=== PATIENT | male | born 1950 | race Caucasian/White ===

== ENCOUNTER 2017-06-12 08:40 | Inpatient (IN) | payer OTHER, MEDICARE ==
[2017-06-12 09:39] LABS: Hematocrit 33 % (42-52); Mean Corpuscular HGB Conc 33 g/dl (31-36); Mean Corpuscular Hemoglobin 31 pg (27-31); Mean Corpuscular Volume 92 fL (80-94); Mean Platelet Volume 8 um3 (7.4-10.4); Red Blood Count 3.61 10^6/ul (4.0-5.4); Red Cell Distribution Width 14 % (10.5-15); White Blood Count 9.8 10^3/ul (3.5-10.8)
[2017-06-12 10:02] LABS: ALT 30 U/L (7-52); AST 27 U/L (13-39); Albumin 4.2 g/dL (3.2-5.2); Alkaline Phosphatase 64 U/L (34-104); Anion Gap 12 mmol/L (2-11); BUN/Creatinine Ratio 18.4 (8-20); Blood Urea Nitrogen 27 mg/dL (6-24); C Reactive Protein 4.99 mg/L (< 5.00); CO2 Carbon Dioxide 18 mmol/L (22-32); Calcium 9.8 mg/dL (8.6-10.3); Chloride 107 mmol/L (101-111); EGFR African American 61.5 (>60); EGFR Non-African American 47.8 (>60); Globulin 3.1 g/dL (2-4); Glucose 148 mg/dL (70-100); Potassium 4.3 mmol/L (3.5-5.0); Sodium 137 mmol/L (133-145); Total Protein 7.3 g/dL (6.4-8.9)
--- NOTE | 2017-06-12 10:30 | ED ---
GI/ HPI - HPI Summary HPI Summary: Pt here w/ urinary retention and pelvic pain progressing to flanks. H/o prostate CA w/ radical prostectomy followed by radiation - this resulted in bladder damage and therefore clot formation. He was also placed on lupron which he stopped 6 months ago and casodex with megace stopped 2 weeks ago. He takes trospium for bladder spasm BID and has been self-cathetering. is self- cathetering successfully until last night - difficulty getting urine - was drinking lots of fluids in an effort to pass urine w/o success. This morning at 6:00am, he was able to pass some urine through cath but notes he had lots of clots and clots - thinks a clot may be obstructing things as he hasn't been able to urinate since. Denies fever, chills, nausea, vomiting, diarrhea - in fact, he's been constipated but OTC laxatives have been helping. Follows w/ oncology/urology in [place] where he resides - he is here visiting a sick family member for the next 6-8 weeks. - History of Current Complaint Chief Complaint: EDUrogenitalProblems Time Seen by Provider: 06/12/17 08:57 Stated Complaint: BLOOD IN URINE/UNABLE TO URINATE Hx Obtained From: Patient, Family/Financial Reporting Consultant - Pain Intensity: 8 - Allergy/Home Medications Allergies/Adverse Reactions: Allergies Allergy/AdvReac Type Severity Reaction Status Date / Time Cephalexin Allergy Hives Verified 06/12/17 08:46 PMH/Surg Hx/FS Hx/Imm Hx Previously Healthy: Yes Endocrine/Hematology History: Denies: Hx Anticoagulant Therapy - ASA daily, Hx Blood Disorders Cardiovascular History: Reports: Hx Hypercholesterolemia - lipitor, zetia, fish oil, Hx Hypertension - metoprolol, verapamil, ramipril GI History: Reports: Hx Gastroesophageal Reflux Disease - omeprazole History: Reports: Other Problems/Disorders - prostate CA w/ rad prost, rad w/ 2ndry cystitis/clots, chemo, self caths Psychiatric History: Reports: Hx Depression - wellbutrin, citalopram - Cancer History Cancer Type, Location and Year: prostate CA w/ rad prost, rad w/ 2ndry cystitis/ clots, chemo, self caths; takes tropsium chloride for spasm BID Date and Location of Last Treatment: [place] Infectious Disease History: Denies: Traveled Outside the [place] in Last 30 Days - Social History Occupation: Retired Lives: With Family Review of Systems Constitutional: Negative Negative: Fever, Chills Cardiovascular: Negative Negative: Chest Pain Respiratory: Negative Negative: Shortness Of Breath Positive: Abdominal Pain - see HPI, Diarrhea - see HPI. Negative: Vomiting, Nausea Positive: see HPI Musculoskeletal: Negative Skin: Negative Neurological: Negative Positive: Anxious - from pain All Other Systems Reviewed And Are Negative: Yes Physical Exam Triage Information Reviewed: Yes Vital Signs On Initial Exam: Initial Vitals Temp Pulse Resp BP Pulse Ox 96.8 F 85 17 150/105 98 06/12/17 08:42 06/12/17 08:42 06/12/17 08:42 06/12/17 08:42 06/12/17 08:42 Vital Signs Reviewed: Yes Appearance: Positive: Well-Appearing, Well-Nourished, Pain Distress Skin: Positive: Warm, Dry Head/Face: Positive: Normal Head/Face Inspection Eyes: Positive: Normal, EOMI, Conjunctiva Clear - anicteric sclera ENT: Positive: Hearing grossly normal - w/ hearing aids in place Neck: Positive: Supple Respiratory/Lung Sounds: Positive: Breath Sounds Present Cardiovascular: Positive: Normal, RRR, S1, S2. Negative: Leg Edema Left, Leg Edema Right Abdomen Description: Positive: Guarding, Other: - TTP over suprapubic region. Negative: CVA Tenderness (R), CVA Tenderness (L) Bowel Sounds: Positive: Present Male Genital Exam: Positive: other - no scrotal swelling, lesions Musculoskeletal: Positive: Normal, Strength/ROM Intact Neurological: Positive: Normal, Sensory/Motor Intact, Alert, Oriented to Person Place, Time, CN Intact II-III Psychiatric: Positive: Anxious Diagnostics - Vital Signs Vital Signs Temp Pulse Resp BP Pulse Ox 06/12/17 08:42 96.8 F 85 17 150/105 98 - Laboratory Lab Results: Lab Results 06/12/17 06/12/17 06/12/17 Range/Units 09:09 09:09 09:20 WBC (3.5-10.8) 10^3/ul RBC (4.0-5.4) 10^6/ul Hgb (14.0-18.0) g/dl Hct (42-52) % MCV (80-94) fL MCH (27-31) pg MCHC (31-36) g/dl RDW (10.5-15) % Plt Count (150-450) 10^3/ul MPV (7.4-10.4) um3 Neut % (Auto) (38-83) % Lymph % (Auto) (25-47) % Warren % (Auto) (1-9) % Eos % (Auto) (0-6) % Baso % (Auto) (0-2) % Absolute Neuts (auto) (1.5-7.7) 10^3/ul Absolute Lymphs (auto) (1.0-4.8) 10^3/ul Absolute Monos (auto) (0-0.8) 10^3/ul Absolute Eos (auto) (0-0.6) 10^3/ul Absolute Basos (auto) (0-0.2) 10^3/ul Absolute Nucleated RBC 10^3/ul Nucleated RBC % INR (Anticoag Therapy) 0.88 L (0.89-1.11) APTT 23.5 L (26.0-36.3) seconds Sodium 137 (133-145) mmol/L Potassium 4.3 (3.5-5.0) mmol/L Chloride 107 (101-111) mmol/L Carbon Dioxide 18 L (22-32) mmol/L Anion Gap 12 H (2-11) mmol/L BUN 27 H (6-24) mg/dL Creatinine 1.47 H (0.67-1.17) mg/dL Est GFR ( Amer) 61.5 (>60) Est GFR (Non-Af Amer) 47.8 (>60) BUN/Creatinine Ratio 18.4 (8-20) Glucose 148 H (70-100) mg/dL Lactic Acid 2.8 H* (0.5-2.0) mmol/L Calcium 9.8 (8.6-10.3) mg/dL Total Bilirubin 1.10 H (0.2-1.0) mg/dL AST 27 (13-39) U/L ALT 30 (7-52) U/L Alkaline Phosphatase 64 (34-104) U/L C-Reactive Protein 4.99 (< 5.00) mg/L Total Protein 7.3 (6.4-8.9) g/dL Albumin 4.2 (3.2-5.2) g/dL Globulin 3.1 (2-4) g/dL Albumin/Globulin Ratio 1.4 (1-3) 06/12/17 Range/Units 09:20 WBC 9.8 (3.5-10.8) 10^3/ul RBC 3.61 L (4.0-5.4) 10^6/ul Hgb 11.0 L (14.0-18.0) g/dl Hct 33 L (42-52) % MCV 92 (80-94) fL MCH 31 (27-31) pg MCHC 33 (31-36) g/dl RDW 14 (10.5-15) % Plt Count 249 (150-450) 10^3/ul MPV 8 (7.4-10.4) um3 Neut % (Auto) 83.1 H (38-83) % Lymph % (Auto) 8.8 L (25-47) % Warren % (Auto) 6.9 (1-9) % Eos % (Auto) 0.5 (0-6) % Baso % (Auto) 0.7 (0-2) % Absolute Neuts (auto) 8.1 H (1.5-7.7) 10^3/ul Absolute Lymphs (auto) 0.9 L (1.0-4.8) 10^3/ul Absolute Monos (auto) 0.7 (0-0.8) 10^3/ul Absolute Eos (auto) 0.1 (0-0.6) 10^3/ul Absolute Basos (auto) 0.1 (0-0.2) 10^3/ul Absolute Nucleated RBC 0 10^3/ul Nucleated RBC % 0 INR (Anticoag Therapy) (0.89-1.11) APTT (26.0-36.3) seconds Sodium (133-145) mmol/L Potassium (3.5-5.0) mmol/L Chloride (101-111) mmol/L Carbon Dioxide (22-32) mmol/L Anion Gap (2-11) mmol/L BUN (6-24) mg/dL Creatinine (0.67-1.17) mg/dL Est GFR ( Amer) (>60) Est GFR (Non-Af Amer) (>60) BUN/Creatinine Ratio (8-20) Glucose (70-100) mg/dL Lactic Acid (0.5-2.0) mmol/L Calcium (8.6-10.3) mg/dL Total Bilirubin (0.2-1.0) mg/dL AST (13-39) U/L ALT (7-52) U/L Alkaline Phosphatase (34-104) U/L C-Reactive Protein (< 5.00) mg/L Total Protein (6.4-8.9) g/dL Albumin (3.2-5.2) g/dL Globulin (2-4) g/dL Albumin/Globulin Ratio (1-3) Result Diagrams: 06/12/17 09:20 06/12/17 09:09 Lab Statement: Any lab studies that have been ordered have been reviewed, and results considered in the medical decision making process. Re-Evaluation - Re-Evaluation First Eval Change: Improved - bladder scan revealed 70+ cc urine - pain improved s/p cath w / irrigation Second Eval Change: Worse - irrigation removed in anticipation for d/c w/ cath only - pain returned and cath occluded - repeat lavage with irrigation rehooked - improved sx and flowing only temporarily - blocked again and pain worse - valium ordered Third Eval Change: Unchanged - no change w/ valium yet - will provide morphine w/ zofran GIGU Course/Dx - Course Course Of Treatment: Pt presents s/p prostate CA w/ radical prostectomy, radiation and chemo. Cystitis 2ndry to radiation tx's - typically able to cath himself w/ success however starting last night, he was unable to do this - first attempt here was successful however in anticipation of d/c, irrigation removed and retention returned. Pt's lactic 2.8, RBC 3.61, HGB 11, HCT 33, INR 0.88, APTT 23.5, T. Bili 1.1, CO2 18, Anion gap 12, BUN 27, CREAT 1.47 GLUCOSE 148. Spoke w/ Dr. Gonzalez who initially after pt was successfully cath'ed and irrigated said okay to d/c w/ phillip, NS, keep cath in place and f/u this week. Unfortunately given following circumstances, pt to have PSA assessed, U/S kidneys w/ CT urogram and NPO - will provide valium for pain/spasm and heat pad to suprapubic region - Lisa requests admission via hospital service and he will assess later today as he cannot come in at the moment - will take to OR as needed. Spoke w/ Dr. Smith who will admit. Discussed course of care with pt and . - Diagnoses Provider Diagnoses: Urinary retention, Gross hematuria, History of prostate cancer - Physician Notifications Discussed Care Of Patient With: Ke Gonzalez Discharge - Discharge Plan Condition: Stable Disposition: ADMITTED TO [facility] Referrals: Non Staff,Doctor [Primary Care Provider] -
[2017-06-12] MEDS ORDERED: Diazepam SYRINGE* 5 MG/ML SYRINGE IV ONE (11:16)
[2017-06-12] MEDS ORDERED: NS 0.9% 1000 ML* 2,000 ML IV ONE (11:16)
[2017-06-12] MEDS: Levofloxacin 750 MG IVPREMIX(* 750 MG/150 ML BAG IVPB ONE ×2 (12:03→14:55)
[2017-06-12] MEDS ORDERED: Iodixanol* (CONTRAST) 320 MG/ML 100 ML SDV IV ONE (12:10)
[2017-06-12] MEDS ORDERED: Morphine INJ* 4 MG/ML 1 ML CARPUJECT IV ONE (12:17)
[2017-06-12] MEDS ORDERED: Ondansetron INJ* 2 MG/ML VIAL IV ONE (12:17)
--- NOTE | 2017-06-12 12:20 | RAD ---
INDICATION: Urinary transient gross hematuria, history of radical prostatectomy chemotherapy and radiation therapy for prostate cancer. COMPARISON: There are no prior studies available for comparison. TECHNIQUE: Multiple real-time images of the kidneys and urinary bladder were obtained. FINDINGS: The kidneys are normal in size shape and echogenicity. The right kidney measured 11.4 x 5.6 x 5.9 cm and the left kidney measured 13.9 x 7.1 x 5.4 cm. There is prominence of the calyces, renal pelvis and proximal ureters and both sides consistent with bilateral hydronephrosis. This is likely [id number] in degree. The bladder is not well defined. The bladder ramos are not distinctly seen. The bladder appears to be filled with material or a mass. The ureteral jets are not visualized. The patient is status post prostatectomy. The volume of the bladder was 271 mL. The patient has a catheter in place. IMPRESSION: 1. LIMITED STUDY. 2. BILATERAL HYDRONEPHROSIS. 3. INCREASED ECHOGENICITY THROUGHOUT THE URINARY BLADDER WHICH IS NOT WELL-DEFINED SUSPICIOUS FOR A BLADDER MASS OR CLOT'S. RECOMMEND A CT UROGRAM FOR FURTHER EVALUATION.
[2017-06-12] MEDS ORDERED: Morphine INJ* 4 MG/ML 1 ML CARPUJECT IV PRN (15:07)
[2017-06-12] MEDS: Acetaminophen TAB* 325 MG PO PRN (16:28)
[2017-06-12 17:00] LABS: Hematocrit 29 % (42-52); Hemoglobin 9.6 g/dl (14.0-18.0)
[2017-06-12 17:07] LABS: Comments Flag Yes
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
[2017-06-12] MEDS: LORazepam TAB(*) 1 MG PO SCH ×2 (17:42→22:23)
[2017-06-12] MEDS: Trospium (NF) 20 MG TAB PO SCH (20:11)
[2017-06-12 20:52] LABS: Hematocrit 28 % (42-52); Hemoglobin 9.2 g/dl (14.0-18.0)
[2017-06-12 20:53] LABS: Comments Flag Yes
[2017-06-12] MEDS ORDERED: Ibuprofen TAB* 600 MG PO ONE (21:26)
[2017-06-12] MEDS ORDERED: NS 0.9% 1000 ML* 1,000 ML IV ONE (21:26)
[2017-06-12] MEDS ORDERED: Ibuprofen TAB* 600 MG ONE (21:36)
[2017-06-13] MEDS: Acetaminophen TAB* 325 MG PO PRN (02:12)
[2017-06-13 02:40] LABS: Hematocrit 26 % (42-52); Hemoglobin 8.3 g/dl (14.0-18.0); Mean Corpuscular HGB Conc 32 g/dl (31-36); Mean Corpuscular Hemoglobin 31 pg (27-31); Mean Corpuscular Volume 96 fL (80-94); Mean Platelet Volume 8 um3 (7.4-10.4); Red Blood Count 2.67 10^6/ul (4.0-5.4); Red Cell Distribution Width 15 % (10.5-15); White Blood Count 16.4 10^3/ul (3.5-10.8)
[2017-06-13 02:41] LABS: Comments Flag Yes
[2017-06-13 02:42] LABS: Add Diff/Slide Review? Slide Review Added
[2017-06-13 02:54] LABS: BUN/Creatinine Ratio 13.9 (8-20); Calcium 8.4 mg/dL (8.6-10.3); EGFR Non-African American 25.7 (>60); Potassium 3.8 mmol/L (3.5-5.0)
[2017-06-13] MEDS: NS 0.9% 1000 ML* 2,000 ML IV ONE ×2 (03:04→04:09)
[2017-06-13] MEDS: LORazepam TAB(*) 1 MG PO SCH ×6 (04:09→22:12)
[2017-06-13] MEDS ORDERED: NS 0.9% 1000 ML* 1,000 ML IV ONE (07:40)
[2017-06-13] MEDS: Omeprazole CAP* 20 MG PO SCH (08:32)
[2017-06-13] MEDS: Atorvastatin* 80 MG TAB PO SCH (08:32)
[2017-06-13] MEDS: NS 0.9% w/ 20 Meq KCL 1000 ML* 1,000 ML IV SCH (08:32)
[2017-06-13] MEDS: Ezetimibe TAB* 10 MG PO SCH (08:33)
[2017-06-13] MEDS: buPROPion SR TAB.SR* 150 MG PO SCH (08:33)
[2017-06-13] MEDS ORDERED: Metoprolol Succinate XL TAB* 200 MG TAB.XL PO SCH (09:00)
[2017-06-13] MEDS ORDERED: Verapamil SR TAB* 240 MG PO SCH (09:00)
[2017-06-13] MEDS ORDERED: Ramipril CAP* 10 MG PO SCH ×2 (09:00)
[2017-06-13] MEDS ORDERED: Metoprolol Succinate XL TAB* 100 MG PO SCH (09:00)
[2017-06-13] MEDS ORDERED: Calcium Carbonate TAB* 1250 MG (CALCIUM 500 MG) PO SCH (09:00)
[2017-06-13] MEDS ORDERED: Citalopram TAB* 10 MG PO SCH (09:00)
[2017-06-13] MEDS: Trospium (NF) 20 MG TAB PO SCH (10:38)
--- NOTE | 2017-06-13 10:44 | CONS ---
CONSULTATION NOTE: DATE OF CONSULT: 06/12/17 LOCATION: The patient is in room 352. HISTORY OF PRESENT ILLNESS/HOSPITAL COURSE: I was asked by the emergency room staff and by the hospitalist service to see this 66-year-old white male with gross hematuria and urinary retention. The history was obtained from the patient and his . Mr. Plasencia is visiting [place] from [place]. He is here with his attending for her ill mother. His history goes back to 2014 when he was diagnosed with carcinoma of the prostate and underwent a radical prostatectomy. Because of positive margins, he received a course of adjuvant radiation therapy. 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 He has been on intermittent self-catheterization. In January 2016, he developed severe gross hematuria, which seemed secondary to radiation cystitis. He required intensive irrigation and then was placed in a hyperbaric chamber, finally controlling the gross hematuria. He has been doing relatively well, having on & off episodes of gross hematuria, and continuing on the self-catheterization. He came with his to [place] to help with the care of her mother who is admitted in the hospital with metastatic lung carcinoma. For the last week or two, he has been having increase in the recurrent episodes of gross hematuria. Before he left [place], he consulted his urologist who advised him to continue on the same regimen and mentioned that the hematuria is likely to persist because of his history of radiation cystitis. The gross hematuria got worse in the last 2 to 3 days and he went into total urinary retention yesterday. He presented to the emergency room. A Schumacher catheter was placed; however, the urine was bloody and there were too many clots to irrigate. The patient was admitted to the floor for evaluation and treatment. On the floor, he was in total retention and became very symptomatic from suprapubic distention and pain. I saw him urgently for consultation. His Schumacher catheter was replaced with difficulty with a 24 Schumacher catheter and after intensive and prolonged irrigations with several liters of saline, almost a whole unit of blood clots were evacuated from his bladder. At the end, the irrigation became relatively clear. The Schumacher was then replaced with a [address] catheter, and placed on continuous bladder irrigation, with clear outflow Following evacuating the clot retention, and placing him on continuous bladder irrigation, his urine has remained clear on slow CBI. On admission, he has had a renal ultrasound, which showed bilateral hydronephrosis most likely secondary to the urinary retention. His serum creatinine was elevated at 1.6. The plan is to continue on the continuous irrigation. It will be discontinued when his urine clears up. He will then be placed on a catheter drainage in preparation for his discharge. If the hematuria persista, he will be taken to the OR for cystoscopy and fulguration of the bladder bleeders. He will also need reevaluation of his kidneys with a noncontrast CT of the abdomen and pelvis, and elective cystoscopy. I will be following the patient on the floor with the hospitalist service. [id number]/[facility] #: [id number] URSULA
[2017-06-13 11:03] LABS: Hematocrit 23 % (42-52); Hemoglobin 7.5 g/dl (14.0-18.0)
[2017-06-13 11:48] LABS: Albumin 2.8 g/dL (3.2-5.2); BUN/Creatinine Ratio 15.7 (8-20); Calcium 7.8 mg/dL (8.6-10.3); EGFR Non-African American 29.5 (>60); Potassium 4.9 mmol/L (3.5-5.0)
[2017-06-13] MEDS ORDERED: Acetaminophen TAB* 325 MG PO ONE (12:15)
[2017-06-13] MEDS: Oxybutynin TAB* 5 MG PO SCH ×2 (12:15→22:23)
[2017-06-13] MEDS ORDERED: diPHENhydraMINE PO* 25 MG PO ONE (12:15)
[2017-06-13] MEDS ORDERED: diPHENhydraMINE PO* 25 MG ONE (12:33)
--- NOTE | 2017-06-13 13:07 | RAD ---
Indication: Fall, head injury. CT of the brain was performed without IV contrast. Ventricular structures are midline. No midline shift is noted. The extra-axial spaces are unremarkable. There is no evidence of intracranial mass or hemorrhage. No other high or low density lesions are identified. Mastoid air cells and paranasal sinuses are unremarkable. IMPRESSION: No intracranial mass or hemorrhage is noted.
[2017-06-13 14:55] LABS: Hematocrit 22 % (42-52); Hemoglobin 7.1 g/dl (14.0-18.0)
--- NOTE | 2017-06-13 17:00 | PN ---
Subjective Date of Service: 06/13/17 Interval History: Patient overnight began to have significant symptoms consistent with alcohol withdrawal including confusion, tremor, and diaphoresis. Patient scored on the WAM protocol overnight. Patient had clear output from his CBI overnight. Patient was then transitioned to just Schumacher catheter drainage with CBI PRN. Patient's lactic acid continued to trend up and his hemoglobin continued to decrease. Patient denies any CP, SOB, Nausea, Vomiting, or Dizziness. LR D/C'd and NS with K+ added. Patient then fell and hit his head. CT scan normal, no other new pain or tenderness on palpation. Patient's Hemoglobin reached 7.5 and 2 units of blood were ordered. Patient's lactic acid was decreasing before the blood was started. Patient continues to score on the WAM protocol and is receiving ativan per protocol. Family History: Unchanged from Admission Social History: Unchanged from Admission Past Medical History: Unchanged from Admission Objective Active Medications: Acetaminophen (Tylenol Tab*) 650 mg PO Q6H PRN PRN Reason: PAIN - MILD TO MODERATE Last Admin: 06/13/17 02:12 Dose: 650 mg Atorvastatin Calcium (Lipitor*) 80 mg PO DAILY [facility] Last Admin: 06/13/17 08:32 Dose: 80 mg Bupropion HCl (Wellbutrin Sr Tab*) 150 mg PO DAILY [facility] Last Admin: 06/13/17 08:33 Dose: 150 mg Calcium Carbonate (Calcium Carbonate Tab*) 1,250 mg PO BID [facility] Citalopram Hydrobromide (Celexa Tab*) 10 mg PO DAILY [facility] Last Admin: 06/13/17 08:33 Dose: 10 mg Ezetimibe (Zetia Tab*) 10 mg PO DAILY [facility] Last Admin: 06/13/17 08:33 Dose: 10 mg Hydralazine HCl (Apresoline Iv*) 5 mg IV SLOW PU Q6H PRN PRN Reason: SYSTOLIC BP GREATER THAN: Levofloxacin/Dextrose (Levaquin 750 Mg Ivpremix(*)) 750 mg in 150 mls @ 100 mls /hr IVPB Q48H [facility] Potassium Chloride/Sodium Chloride (Ns 0.9% W/ 20 Meq Kcl 1000 Ml*) 1,000 mls @ 175 mls/hr IV PER RATE [facility] Last Admin: 06/13/17 08:32 Dose: 175 mls/hr Lorazepam (Ativan Tab(*)) 0 - 6 mg PO .PER [facility] PROTOCOL [facility] PRN Reason: Protocol Last Admin: 06/13/17 16:04 Dose: 2 mg Morphine Sulfate (Morphine Inj (Syringe)*) 4 mg IV Q4H PRN PRN Reason: PAIN - SEVERE Last Admin: 06/13/17 05:16 Dose: 4 mg Omeprazole (Prilosec Cap*) 20 mg PO DAILY@0730 [facility] Last Admin: 06/13/17 08:32 Dose: 20 mg Oxybutynin Chloride (Ditropan Tab*) 5 mg PO BID [facility] Last Admin: 06/13/17 12:15 Dose: 5 mg Vital Signs 06/12/17 06/12/17 06/12/17 17:42 19:42 20:00 Temperature 98.1 F Pulse Rate Respiratory 20 20 20 Rate Blood Pressure (mmHg) O2 Sat by Pulse Oximetry 06/12/17 06/12/17 06/12/17 20:06 21:37 22:00 Temperature Pulse Rate 88 Respiratory 20 18 18 Rate Blood Pressure 102/69 (mmHg) O2 Sat by Pulse 98 Oximetry 06/12/17 06/12/17 06/13/17 22:03 22:23 00:00 Temperature 98.9 F Pulse Rate 80 Respiratory 18 18 18 Rate Blood Pressure 96/79 (mmHg) O2 Sat by Pulse 98 Oximetry 06/13/17 06/13/17 06/13/17 00:02 00:23 01:57 Temperature 98.0 F 98.5 F Pulse Rate 77 77 Respiratory 18 18 18 Rate Blood Pressure 97/62 95/57 (mmHg) O2 Sat by Pulse 97 98 Oximetry 06/13/17 06/13/17 06/13/17 02:00 04:05 04:09 Temperature 98.3 F Pulse Rate 77 Respiratory 19 18 18 Rate Blood Pressure 108/66 (mmHg) O2 Sat by Pulse 100 Oximetry 06/13/17 06/13/17 06/13/17 05:16 05:55 05:58 Temperature Pulse Rate 80 Respiratory 20 20 Rate Blood Pressure (mmHg) O2 Sat by Pulse 94 Oximetry 06/13/17 06/13/17 06/13/17 06:09 06:16 07:22 Temperature 97.9 F 99.8 F Pulse Rate 98 76 Respiratory 18 18 16 Rate Blood Pressure 110/59 116/51 (mmHg) O2 Sat by Pulse 95 95 Oximetry 06/13/17 06/13/17 06/13/17 07:50 08:05 08:28 Temperature Pulse Rate 73 Respiratory 16 20 20 Rate Blood Pressure 106/59 (mmHg) O2 Sat by Pulse 95 Oximetry 06/13/17 06/13/17 06/13/17 08:33 09:55 10:00 Temperature Pulse Rate 67 75 Respiratory 20 Rate Blood Pressure 103/56 111/84 (mmHg) O2 Sat by Pulse 95 Oximetry 06/13/17 06/13/17 06/13/17 10:33 11:49 12:02 Temperature 98.6 F 98.7 F Pulse Rate 68 66 Respiratory 16 20 16 Rate Blood Pressure 113/54 110/74 (mmHg) O2 Sat by Pulse 98 98 Oximetry 06/13/17 06/13/17 06/13/17 12:17 12:33 13:27 Temperature 98.9 F 98.7 F 98.6 F Pulse Rate 96 65 67 Respiratory 18 18 15 Rate Blood Pressure 135/82 95/48 109/53 (mmHg) O2 Sat by Pulse 97 97 97 Oximetry 06/13/17 06/13/17 06/13/17 13:45 13:53 14:52 Temperature Pulse Rate 69 69 Respiratory 16 15 Rate Blood Pressure 117/93 98/52 (mmHg) O2 Sat by Pulse 93 95 Oximetry 06/13/17 06/13/17 15:48 16:04 Temperature 98.2 F Pulse Rate 71 Respiratory 15 20 Rate Blood Pressure 115/54 (mmHg) O2 Sat by Pulse 95 Oximetry Oxygen Devices in Use Now: None Appearance: Patient is a 66 yo male who appears stated age and is diophoretic and tremulous sitting in the hospital bed in moderate distress. Eyes: No Scleral Icterus, PERRLA Ears/Nose/Mouth/Throat: NL Teeth, Lips, Gums, Clear Oropharnyx, Mucous Membranes Moist, - - Head non tender, atraumatic, normocephalic. Neck: NL Appearance and Movements; NL JVP, Trachea Midline Respiratory: Symmetrical Chest Expansion and Respiratory Effort, Clear to Auscultation Cardiovascular: NL Sounds; No Murmurs; No JVD, RRR, No Edema, - - Pulses 2+ in radial, posterior tibialis, and dorsalis pedis areas. Capillary refill brisk, extremities warm to touch. Abdominal: NL Sounds; No Tenderness; No Distention, No Hepatosplenomegaly Lymphatic: No Cervical Adenopathy Extremities: No Clubbing, Cyanosis Skin: No Rash or Ulcers, No Nodules or Sclerosis Neurological: Alert and Oriented x 3, - - Patient somewhat confused, but A+Ox3. CN II-XII intact. Result Diagrams: 06/13/17 14:29 06/13/17 10:50 Additional Lab and Data: Lab Results 06/12/17 06/12/17 06/12/17 Range/Units 09:09 09:09 09:20 WBC (3.5-10.8) 10^3/ul RBC (4.0-5.4) 10^6/ul Hgb (14.0-18.0) g/dl Hct (42-52) % MCV (80-94) fL MCH (27-31) pg MCHC (31-36) g/dl RDW (10.5-15) % Plt Count (150-450) 10^3/ul MPV (7.4-10.4) um3 Neut % (Auto) (38-83) % Lymph % (Auto) (25-47) % Lyman % (Auto) (1-9) % Eos % (Auto) (0-6) % Baso % (Auto) (0-2) % Absolute Neuts (auto) (1.5-7.7) 10^3/ul Absolute Lymphs (auto) (1.0-4.8) 10^3/ul Absolute Monos (auto) (0-0.8) 10^3/ul Absolute Eos (auto) (0-0.6) 10^3/ul Absolute Basos (auto) (0-0.2) 10^3/ul Absolute Nucleated RBC 10^3/ul Nucleated RBC % INR (Anticoag Therapy) 0.88 L (0.89-1.11) APTT 23.5 L (26.0-36.3) seconds Sodium 137 (133-145) mmol/L Potassium 4.3 (3.5-5.0) mmol/L Chloride 107 (101-111) mmol/L Carbon Dioxide 18 L (22-32) mmol/L Anion Gap 12 H (2-11) mmol/L BUN 27 H (6-24) mg/dL Creatinine 1.47 H (0.67-1.17) mg/dL Est GFR ( Amer) 61.5 (>60) Est GFR (Non-Af Amer) 47.8 (>60) BUN/Creatinine Ratio 18.4 (8-20) Glucose 148 H (70-100) mg/dL Lactic Acid 2.8 H* (0.5-2.0) mmol/L Calcium 9.8 (8.6-10.3) mg/dL Total Bilirubin 1.10 H (0.2-1.0) mg/dL AST 27 (13-39) U/L ALT 30 (7-52) U/L Alkaline Phosphatase 64 (34-104) U/L C-Reactive Protein 4.99 (< 5.00) mg/L Total Protein 7.3 (6.4-8.9) g/dL Albumin 4.2 (3.2-5.2) g/dL Globulin 3.1 (2-4) g/dL Albumin/Globulin Ratio 1.4 (1-3) / Range/Units 09:20 WBC 9.8 (3.5-10.8) 10^3/ul RBC 3.61 L (4.0-5.4) 10^6/ul Hgb 11.0 L (14.0-18.0) g/dl Hct 33 L (42-52) % MCV 92 (80-94) fL MCH 31 (27-31) pg MCHC 33 (31-36) g/dl RDW 14 (10.5-15) % Plt Count 249 (150-450) 10^3/ul MPV 8 (7.4-10.4) um3 Neut % (Auto) 83.1 H (38-83) % Lymph % (Auto) 8.8 L (25-47) % Lyman % (Auto) 6.9 (1-9) % Eos % (Auto) 0.5 (0-6) % Baso % (Auto) 0.7 (0-2) % Absolute Neuts (auto) 8.1 H (1.5-7.7) 10^3/ul Absolute Lymphs (auto) 0.9 L (1.0-4.8) 10^3/ul Absolute Monos (auto) 0.7 (0-0.8) 10^3/ul Absolute Eos (auto) 0.1 (0-0.6) 10^3/ul Absolute Basos (auto) 0.1 (0-0.2) 10^3/ul Absolute Nucleated RBC 0 10^3/ul Nucleated RBC % 0 INR (Anticoag Therapy) (0.89-1.11) APTT (26.0-36.3) seconds Sodium (133-145) mmol/L Potassium (3.5-5.0) mmol/L Chloride (101-111) mmol/L Carbon Dioxide (22-32) mmol/L Anion Gap (2-11) mmol/L BUN (6-24) mg/dL Creatinine (0.67-1.17) mg/dL Est GFR ( Amer) (>60) Est GFR (Non-Af Amer) (>60) BUN/Creatinine Ratio (8-20) Glucose (70-100) mg/dL Lactic Acid (0.5-2.0) mmol/L Calcium (8.6-10.3) mg/dL Total Bilirubin (0.2-1.0) mg/dL AST (13-39) U/L ALT (7-52) U/L Alkaline Phosphatase (34-104) U/L C-Reactive Protein (< 5.00) mg/L Total Protein (6.4-8.9) g/dL Albumin (3.2-5.2) g/dL Globulin (2-4) g/dL Albumin/Globulin Ratio (1-3) 06/12/17 06/12/17 06/12/17 09:09 09:09 09:20 WBC RBC Hgb Hct MCV MCH MCHC RDW Plt Count MPV Neut % (Auto) Lymph % (Auto) Lyman % (Auto) Eos % (Auto) Baso % (Auto) Absolute Neuts (auto) Absolute Lymphs (auto) Absolute Monos (auto) Absolute Eos (auto) Absolute Basos (auto) Absolute Nucleated RBC Nucleated RBC % INR (Anticoag Therapy) 0.88 L APTT 23.5 L Sodium 137 Potassium 4.3 Chloride 107 Carbon Dioxide 18 L Anion Gap 12 H BUN 27 H Creatinine 1.47 H Est GFR ( Amer) 61.5 Est GFR (Non-Af Amer) 47.8 BUN/Creatinine Ratio 18.4 Glucose 148 H Lactic Acid 2.8 H* Calcium 9.8 Phosphorus Magnesium Total Bilirubin 1.10 H AST 27 ALT 30 Alkaline Phosphatase 64 C-Reactive Protein 4.99 Total Protein 7.3 Albumin 4.2 Globulin 3.1 Albumin/Globulin Ratio 1.4 Prostate Specific Ag < 0.008 Blood Type Antibody Screen Crossmatch 06/12/17 06/12/17 06/12/17 09:20 16:50 16:50 WBC 9.8 RBC 3.61 L Hgb 11.0 L 9.6 L Hct 33 L 29 L MCV 92 MCH 31 MCHC 33 RDW 14 Plt Count 249 MPV 8 Neut % (Auto) 83.1 H Lymph % (Auto) 8.8 L Lyman % (Auto) 6.9 Eos % (Auto) 0.5 Baso % (Auto) 0.7 Absolute Neuts (auto) 8.1 H Absolute Lymphs (auto) 0.9 L Absolute Monos (auto) 0.7 Absolute Eos (auto) 0.1 Absolute Basos (auto) 0.1 Absolute Nucleated RBC 0 Nucleated RBC % 0 INR (Anticoag Therapy) APTT Sodium Potassium Chloride Carbon Dioxide Anion Gap BUN Creatinine Est GFR ( Amer) Est GFR (Non-Af Amer) BUN/Creatinine Ratio Glucose Lactic Acid 3.1 H* Calcium Phosphorus Magnesium Total Bilirubin AST ALT Alkaline Phosphatase C-Reactive Protein Total Protein Albumin Globulin Albumin/Globulin Ratio Prostate Specific Ag Blood Type Antibody Screen Crossmatch 06/12/17 06/12/17 06/13/17 20:47 20:47 02:33 WBC 16.4 H RBC 2.67 L Hgb 9.2 L 8.3 L Hct 28 L 26 L MCV 96 H MCH 31 MCHC 32 RDW 15 Plt Count 141 L MPV 8 Neut % (Auto) 96.8 H Lymph % (Auto) 1.1 L Lyman % (Auto) 2.0 Eos % (Auto) 0 Baso % (Auto) 0.1 Absolute Neuts (auto) 15.9 H Absolute Lymphs (auto) 0.2 L Absolute Monos (auto) 0.3 Absolute Eos (auto) 0 Absolute Basos (auto) 0 Absolute Nucleated RBC 0.24 Nucleated RBC % 1.4 INR (Anticoag Therapy) APTT Sodium Potassium Chloride Carbon Dioxide Anion Gap BUN Creatinine Est GFR ( Amer) Est GFR (Non-Af Amer) BUN/Creatinine Ratio Glucose Lactic Acid 4.5 H* Calcium Phosphorus Magnesium Total Bilirubin AST ALT Alkaline Phosphatase C-Reactive Protein Total Protein Albumin Globulin Albumin/Globulin Ratio Prostate Specific Ag Blood Type Antibody Screen Crossmatch 06/13/17 06/13/17 06/13/17 02:33 02:33 05:59 WBC RBC Hgb Hct MCV MCH MCHC RDW Plt Count MPV Neut % (Auto) Lymph % (Auto) Lyman % (Auto) Eos % (Auto) Baso % (Auto) Absolute Neuts (auto) Absolute Lymphs (auto) Absolute Monos (auto) Absolute Eos (auto) Absolute Basos (auto) Absolute Nucleated RBC Nucleated RBC % INR (Anticoag Therapy) APTT Sodium 139 Potassium 3.8 Chloride 110 Carbon Dioxide 19 L Anion Gap 10 BUN 35 H Creatinine 2.52 H Est GFR ( Amer) 33.0 Est GFR (Non-Af Amer) 25.7 BUN/Creatinine Ratio 13.9 Glucose 139 H Lactic Acid 4.5 H* 4.7 H* Calcium 8.4 L Phosphorus Magnesium Total Bilirubin AST ALT Alkaline Phosphatase C-Reactive Protein Total Protein Albumin Globulin Albumin/Globulin Ratio Prostate Specific Ag Blood Type Antibody Screen Crossmatch 06/13/17 06/13/17 06/13/17 10:50 10:50 10:50 WBC RBC Hgb 7.5 L Hct 23 L MCV MCH MCHC RDW Plt Count MPV Neut % (Auto) Lymph % (Auto) Lyman % (Auto) Eos % (Auto) Baso % (Auto) Absolute Neuts (auto) Absolute Lymphs (auto) Absolute Monos (auto) Absolute Eos (auto) Absolute Basos (auto) Absolute Nucleated RBC Nucleated RBC % INR (Anticoag Therapy) APTT Sodium 138 Potassium 4.9 Chloride 113 H Carbon Dioxide 17 L Anion Gap 8 BUN 35 H Creatinine 2.23 H Est GFR ( Amer) 38.0 Est GFR (Non-Af Amer) 29.5 BUN/Creatinine Ratio 15.7 Glucose 136 H Lactic Acid 3.4 H* Calcium 7.8 L Phosphorus 4.0 Magnesium Total Bilirubin AST ALT Alkaline Phosphatase C-Reactive Protein Total Protein Albumin 2.8 L Globulin Albumin/Globulin Ratio Prostate Specific Ag Blood Type Antibody Screen Crossmatch 06/13/17 06/13/17 06/13/17 10:50 14:29 14:29 WBC RBC Hgb 7.1 L Hct 22 L MCV MCH MCHC RDW Plt Count MPV Neut % (Auto) Lymph % (Auto) Lyman % (Auto) Eos % (Auto) Baso % (Auto) Absolute Neuts (auto) Absolute Lymphs (auto) Absolute Monos (auto) Absolute Eos (auto) Absolute Basos (auto) Absolute Nucleated RBC Nucleated RBC % INR (Anticoag Therapy) APTT Sodium Potassium Chloride Carbon Dioxide Anion Gap BUN Creatinine Est GFR ( Amer) Est GFR (Non-Af Amer) BUN/Creatinine Ratio Glucose Lactic Acid 2.8 H* Calcium Phosphorus Magnesium Total Bilirubin AST ALT Alkaline Phosphatase C-Reactive Protein Total Protein Albumin Globulin Albumin/Globulin Ratio Prostate Specific Ag Blood Type A Positive Antibody Screen Negative Crossmatch See Detail 06/13/17 06/13/17 14:29 14:29 WBC RBC Hgb Hct MCV MCH MCHC RDW Plt Count MPV Neut % (Auto) Lymph % (Auto) Lyman % (Auto) Eos % (Auto) Baso % (Auto) Absolute Neuts (auto) Absolute Lymphs (auto) Absolute Monos (auto) Absolute Eos (auto) Absolute Basos (auto) Absolute Nucleated RBC Nucleated RBC % INR (Anticoag Therapy) 1.17 H APTT 24.8 L Sodium Potassium Chloride Carbon Dioxide Anion Gap BUN Creatinine Est GFR ( Amer) Est GFR (Non-Af Amer) BUN/Creatinine Ratio Glucose Lactic Acid Calcium Phosphorus Magnesium 1.8 L Total Bilirubin AST ALT Alkaline Phosphatase C-Reactive Protein Total Protein Albumin Globulin Albumin/Globulin Ratio Prostate Specific Ag Blood Type Antibody Screen Crossmatch Assess/Plan/Problems-Billing Assessment: Patient is a 66yo male with a PMH significant for prostate cancer with radical prostatectomy and radiation cystitis who presented yesterday with complete urinary obstruction from blood clots. Patient today is suffering from acute blood loss anemia and withdrawal from alcohol. Patient will stay admitted and will be taken to OR tomorrow if stable for cystoscopy. - Patient Problems (1) Chronic radiation cystitis Current Visit: Yes Status: Acute Code(s): N30.40 - IRRADIATION CYSTITIS WITHOUT HEMATURIA SNOMED Code(s): 105754721 Comment: Currently back on CBI with clear drainage. Will go to OR tomorrow with Urology if stable. RCRI of 1 indicating a 1% risk of cardiac mortality and a 1.6% risk of cardiac morbidity. (2) Acute blood loss anemia Current Visit: Yes Status: Acute Code(s): D62 - ACUTE POSTHEMORRHAGIC ANEMIA SNOMED Code(s): 551350683 Comment: Hemoglobin down to 7.1, blood unit 1/2 currently transfusing. Lactic acid trending down. Will continue to monitor after transfusion and retransfuse as needed. NS with K+ running at 175. (3) History of prostate cancer Current Visit: Yes Status: Acute Code(s): Z85.46 - PERSONAL HISTORY OF MALIGNANT NEOPLASM OF PROSTATE SNOMED Code(s): 658785033 Comment: PSA currently undetectable indicating no residual disease. (4) Alcohol abuse Current Visit: Yes Status: Acute Code(s): F10.10 - ALCOHOL ABUSE, UNCOMPLICATED SNOMED Code(s): 90263519 Comment: [place] drinks 1 pint to a fifth of vodka at home daily. Patient lives in [place], will address rehab when mentally capable. (5) Alcohol withdrawal delirium, acute, hyperactive Current Visit: Yes Status: Acute Code(s): F10.231 - ALCOHOL DEPENDENCE WITH WITHDRAWAL DELIRIUM SNOMED Code(s): 6915730 Comment: Patient continues to score on WAM scale. Will continue on ativan per protocol. (6) DVT prophylaxis Current Visit: Yes Status: Acute Code(s): KQQ0826 - SNOMED Code(s): 092146298 Comment: Heparin contraindicated. SCDs in place. No swelling or pain in lower extremities. (7) DNR (do not resuscitate) discussion Current Visit: Yes Status: Acute Code(s): Z71.89 - OTHER SPECIFIED COUNSELING SNOMED Code(s): 977392830 Comment: Discussed with patient that he would like to be a DNR. Status and Disposition: Patient is admitted inpatient. LOS estimated at 3-5 days.
[2017-06-13 18:09] LABS: Comments Flag Yes; Hematocrit 24 % (42-52); Hemoglobin 7.7 g/dl (14.0-18.0)
[2017-06-13] MEDS ORDERED: Magnesium Sulfate 1 GM IV* 1 GM/100 ML BAG IV ONE (19:40)
[2017-06-13] MEDS: Calcium Carbonate TAB* 1250 MG (CALCIUM 500 MG) PO SCH (22:23)
[2017-06-14] MEDS ORDERED: Magnesium Sulfate 1 GM IV* 1 GM/100 ML BAG IV ONE
[2017-06-14] MEDS: LORazepam TAB(*) 1 MG PO SCH ×3 (00:13→08:08)
[2017-06-14] MEDS: NS 0.9% w/ 20 Meq KCL 1000 ML* 1,000 ML IV SCH ×4 (02:59→23:27)
[2017-06-14 06:40] LABS: Hematocrit 25 % (42-52); Hemoglobin 8.4 g/dl (14.0-18.0); Mean Corpuscular HGB Conc 33 g/dl (31-36); Mean Corpuscular Hemoglobin 31 pg (27-31); Mean Corpuscular Volume 93 fL (80-94); Mean Platelet Volume 8 um3 (7.4-10.4); Red Blood Count 2.69 10^6/ul (4.0-5.4); Red Cell Distribution Width 15 % (10.5-15); White Blood Count 12.4 10^3/ul (3.5-10.8)
[2017-06-14 07:01] LABS: BUN/Creatinine Ratio 21.1 (8-20); Calcium 8.4 mg/dL (8.6-10.3); EGFR African American 82.4 (>60); EGFR Non-African American 64.1 (>60); Potassium 4.4 mmol/L (3.5-5.0)
[2017-06-14 07:08] LABS: Magnesium 1.9 mg/dL (1.9-2.7)
[2017-06-14 07:12] LABS: Add Diff/Slide Review? Slide Review Added; Comments Flag Yes
[2017-06-14 08:16] LABS: Eosinophils % 1 % (0-6); Immature Granulocytes 23 % (0-9); Metamyelocytes % 6 % (0-2); Myelocytes % 7 % (0-1); Neutrophil % 70 % (38-83)
[2017-06-14 08:18] LABS: Add Path Review? YES; Hypochromasia 1+; Polychromasia 1+
--- NOTE | 2017-06-14 08:51 | RAD ---
CLINICAL HISTORY: Hydronephrosis COMPARISON: Ultrasound dated June 12, 2017 TECHNIQUE: Multiple contiguous axial CT scans were obtained of the abdomen and pelvis, without intravenous contrast enhancement. Coronal and sagittal multiplanar reformations are submitted for review. Oral contrast was not administered. FINDINGS: The study is limited by the lack of intravenous contrast. This limits evaluation of the solid organs and vasculature. LUNG BASES: There are small bilateral pleural effusions. LIVER: The liver is normal in shape, size, contour, and attenuation. BILE DUCTS: There is no intrahepatic or extrahepatic biliary dilatation. GALLBLADDER: The gallbladder is normal, without pericholecystic inflammatory change. PANCREAS: The pancreas is normal, without mass or ductal dilatation. SPLEEN: Normal in size and appearance. UPPER GI TRACT: Evaluation of the gastrointestinal tract is limited by incomplete gastric distention. The upper GI tract is unremarkable. SMALL BOWEL AND MESENTERY: The small bowel is normal in contour, course, and caliber. There is no obstruction or dilatation. COLON: There are multiple diverticula of the sigmoid colon. There is no pericolonic inflammatory change. ADRENALS: Normal bilaterally. KIDNEYS: There is mild right pelviectasis. There is perinephric stranding on the left with moderate pelvocaliectasis. There is no appreciable calculus. BLADDER: The bladder is collapsed around a Schumacher catheter is not well evaluated. PELVIC ORGANS: The pelvic organs are not visualized. AORTA: There is calcific atherosclerotic disease of the abdominal aorta and its branches, without aneurysmal dilatation IVC: Unremarkable LYMPH NODES: There is no lymphadenopathy by size criteria. ABDOMINAL WALL: There are bilateral fat-containing hernias. BONES AND SOFT TISSUES: Degenerative changes are noted OTHER: None IMPRESSION: 1. LEFT GREATER THAN THE RIGHT, BILATERAL HYDRONEPHROSIS WITHOUT APPRECIABLE NEPHROLITHIASIS. THERE IS PERINEPHRIC STRANDING ON THE LEFT. 2. SMALL BILATERAL PLEURAL EFFUSIONS. 3. DIVERTICULOSIS. 4. BILATERAL FAT-CONTAINING INGUINAL HERNIAS.
[2017-06-14] MEDS ORDERED: Magnesium Sulfate 2 GM IV* 2 GM/50 ML BAG IVPB ONE (10:55)
[2017-06-14] MEDS: Calcium Carbonate TAB* 1250 MG (CALCIUM 500 MG) PO SCH ×2 (11:05→20:53)
[2017-06-14] MEDS: buPROPion SR TAB.SR* 150 MG PO SCH (11:05)
[2017-06-14] MEDS: Atorvastatin* 80 MG TAB PO SCH (11:05)
[2017-06-14] MEDS: Omeprazole CAP* 20 MG PO SCH (11:05)
[2017-06-14] MEDS: Oxybutynin TAB* 5 MG PO SCH ×2 (11:06→20:53)
[2017-06-14] MEDS: Ezetimibe TAB* 10 MG PO SCH (11:06)
[2017-06-14] MEDS: hydrALAZINE IV* 20 MG/ML VIAL IV SLOW PU PRN (12:33)
[2017-06-14 12:52] LABS: Hematocrit 26 % (42-52); Hemoglobin 8.8 g/dl (14.0-18.0); Mean Corpuscular HGB Conc 33 g/dl (31-36); Mean Corpuscular Hemoglobin 31 pg (27-31); Mean Corpuscular Volume 93 fL (80-94); Mean Platelet Volume 8 um3 (7.4-10.4); Red Blood Count 2.82 10^6/ul (4.0-5.4); Red Cell Distribution Width 15 % (10.5-15); White Blood Count 12.7 10^3/ul (3.5-10.8)
[2017-06-14 12:57] LABS: Add Diff/Slide Review? Slide Review Added; Comments Flag Yes
--- NOTE | 2017-06-14 13:17 | RAD ---
HISTORY: Fall, altered mental status COMPARISONS: June 13, 2017 TECHNIQUE: Multiple contiguous axial CT scans were obtained of the head without intravenous contrast. FINDINGS: The study is limited by patient motion artifact. HEMORRHAGE/INFARCT: There is no hemorrhage or acute infarct. MASSES/SHIFT: There is no mass or shift. EXTRA-AXIAL SPACES: There are no extra-axial fluid collections. SULCI AND VENTRICLES: The sulci and ventricles are normal in size and position for the patient's stated age. CEREBRUM: There are no focal parenchymal abnormalities. A small focus of hyperattenuation within the right basal ganglia on axial image 14 is felt to represent volume averaging from adjacent basal ganglia calcification on axial image 13. BRAINSTEM: There are no focal parenchymal abnormalities. CEREBELLUM: There are no focal parenchymal abnormalities. VESSELS: The vessels are grossly normal. PARANASAL SINUSES: The paranasal sinuses are clear. ORBITS: The orbits are unremarkable. BONES AND SOFT TISSUE: No bone or soft tissue abnormalities are noted. OTHER: None IMPRESSION: NO ACUTE INTRACRANIAL PATHOLOGY.
[2017-06-14 13:19] LABS: BUN/Creatinine Ratio 19.4 (8-20); C Reactive Protein 232.7 mg/L (< 5.00); Calcium 8.7 mg/dL (8.6-10.3); EGFR African American 98.1 (>60); EGFR Non-African American 76.3 (>60); Potassium 4.3 mmol/L (3.5-5.0)
[2017-06-14 13:44] LABS: Albumin 3.1 g/dL (3.2-5.2); Direct Bilirubin 0.3 mg/dL (0.03-0.18); Globulin 2.8 g/dL (2-4); Indirect Bilirubin 1.7 mg/dL (0.3-1.0); Total Protein 5.9 g/dL (6.4-8.9)
[2017-06-14] MEDS ORDERED: Levofloxacin 750 MG IVPREMIX(* 750 MG/150 ML BAG IVPB SCH (15:00)
[2017-06-14 15:36] LABS: Urine Bilirubin Negative (Negative); Urine Glucose Negative (Negative); Urine Nitrite Negative (Negative)
[2017-06-14 15:39] LABS: Urine Bacteria Absent (Absent)
[2017-06-14] MEDS: TRIMETH IVPB SCH (15:41)
[2017-06-14] MEDS: SULFAMETHOXAZOLE IVPB SCH (15:41)
[2017-06-14] MEDS: D5W IVPB SCH (15:41)
[2017-06-14] MEDS: LORazepam INJ* 2 MG/ML 1 ML VIAL IV PUSH SCH ×2 (16:12→18:56)
--- NOTE | 2017-06-14 17:35 | PN ---
Subjective Date of Service: 06/14/17 Interval History: Patient continued to deteriorate overnight with regards to mental status. Patient continued to score on the WAM scale but the ativan was held due to concerns about promoting the delirium. Patient's lab work improved greatly after blood transfusions. CT scan repeated shows no intracranial pathology. CRP increased to 292. concerned about high doses of ativan. Patient began to calm down near the end of the day. Family History: Unchanged from Admission Social History: Unchanged from Admission Past Medical History: Unchanged from Admission Objective Active Medications: Acetaminophen (Tylenol Tab*) 650 mg PO Q6H PRN PRN Reason: PAIN - MILD TO MODERATE Last Admin: 06/13/17 02:12 Dose: 650 mg Atorvastatin Calcium (Lipitor*) 80 mg PO DAILY [facility] Last Admin: 06/14/17 11:05 Dose: Not Given Bupropion HCl (Wellbutrin Sr Tab*) 150 mg PO DAILY [facility] Last Admin: 06/14/17 11:05 Dose: Not Given Calcium Carbonate (Calcium Carbonate Tab*) 1,250 mg PO BID [facility] Last Admin: 06/14/17 11:05 Dose: Not Given Ezetimibe (Zetia Tab*) 10 mg PO DAILY [facility] Last Admin: 06/14/17 11:06 Dose: Not Given Hydralazine HCl (Apresoline Iv*) 5 mg IV SLOW PU Q6H PRN PRN Reason: SYSTOLIC BP GREATER THAN: Last Admin: 06/14/17 12:33 Dose: 5 mg Potassium Chloride/Sodium Chloride (Ns 0.9% W/ 20 Meq Kcl 1000 Ml*) 1,000 mls @ 175 mls/hr IV PER RATE [facility] Last Admin: 06/14/17 09:17 Dose: 175 mls/hr Trimethoprim/Sulfamethoxazole (480 mg/ Dextrose) 530 mls @ 265 mls/hr IVPB Q12H [facility] Last Admin: 06/14/17 15:41 Dose: 265 mls/hr Lorazepam (Ativan Inj*) 0 - 3 mg IV PUSH .PER [facility] PROTOCOL STEVEN PRN Reason: Protocol Last Admin: 06/14/17 16:12 Dose: 2 mg Morphine Sulfate (Morphine Inj (Syringe)*) 4 mg IV Q4H PRN PRN Reason: PAIN - SEVERE Last Admin: 06/13/17 05:16 Dose: 4 mg Omeprazole (Prilosec Cap*) 20 mg PO DAILY@0730 [facility] Last Admin: 06/14/17 11:05 Dose: Not Given Oxybutynin Chloride (Ditropan Tab*) 5 mg PO BID [facility] Last Admin: 06/14/17 11:06 Dose: Not Given Vital Signs 06/13/17 06/13/17 06/13/17 17:48 18:00 18:04 Temperature 98.7 F Pulse Rate 72 Respiratory 16 18 18 Rate Blood Pressure 111/55 (mmHg) O2 Sat by Pulse 96 Oximetry 06/13/17 06/13/17 06/13/17 18:36 19:47 20:15 Temperature 98.9 F 98.2 F Pulse Rate 79 82 Respiratory 18 16 20 Rate Blood Pressure 136/60 131/64 (mmHg) O2 Sat by Pulse 94 95 Oximetry 06/13/17 06/13/17 06/13/17 20:25 20:26 20:36 Temperature Pulse Rate Respiratory 20 20 20 Rate Blood Pressure (mmHg) O2 Sat by Pulse Oximetry 06/13/17 06/13/17 06/13/17 20:41 21:58 22:12 Temperature 99.2 F 99.1 F Pulse Rate 82 85 Respiratory 20 20 20 Rate Blood Pressure 115/62 108/49 (mmHg) O2 Sat by Pulse 95 95 Oximetry 06/13/17 06/13/17 06/13/17 22:26 22:36 23:25 Temperature 99.6 F Pulse Rate 88 Respiratory 20 24 24 Rate Blood Pressure 138/68 (mmHg) O2 Sat by Pulse 95 Oximetry 06/14/17 06/14/17 06/14/17 00:12 00:13 02:08 Temperature 98.7 F Pulse Rate 85 Respiratory 22 24 40 Rate Blood Pressure 162/67 (mmHg) O2 Sat by Pulse 91 Oximetry 06/14/17 06/14/17 06/14/17 02:13 05:52 07:57 Temperature 97.7 F 98.4 F Pulse Rate 80 83 Respiratory 22 26 18 Rate Blood Pressure 144/84 (mmHg) O2 Sat by Pulse 94 95 Oximetry 06/14/17 06/14/17 06/14/17 08:00 08:08 10:23 Temperature 98.7 F Pulse Rate 88 Respiratory 22 32 28 Rate Blood Pressure 182/83 (mmHg) O2 Sat by Pulse 93 Oximetry 06/14/17 06/14/1717 11:09 12:19 14:04 Temperature 97.1 F Pulse Rate 85 91 Respiratory 24 32 30 Rate Blood Pressure 180/107 (mmHg) O2 Sat by Pulse 96 Oximetry 06/14/17 06/14/17 15:56 16:12 Temperature 98.3 F Pulse Rate 88 Respiratory 28 36 Rate Blood Pressure 173/92 (mmHg) O2 Sat by Pulse 96 Oximetry Oxygen Devices in Use Now: Nasal Cannula - 1 liter NC Appearance: Patient is a 66yo male who appears stated age laying restlessly in the bed, occasionally grabbing at the air. Eyes: - - Patient's sclera shows mild icterus. Ears/Nose/Mouth/Throat: NL Teeth, Lips, Gums, Clear Oropharnyx, Mucous Membranes Moist Neck: NL Appearance and Movements; NL JVP Respiratory: Symmetrical Chest Expansion and Respiratory Effort, Clear to Auscultation Cardiovascular: NL Sounds; No Murmurs; No JVD, RRR, No Edema Abdominal: No Hepatosplenomegaly, - - Involuntary guarding to palpation diffusely. Non rigid. Lymphatic: No Cervical Adenopathy Extremities: No Edema, No Clubbing, Cyanosis Skin: No Rash or Ulcers Neurological: - - Patient responds to voice and opens eyes and looks at examiner in response to his name. Patient moving all limbs equally. Exam limited by patient's mental state. Result Diagrams: 06/14/17 12:24 06/14/17 12:24 Additional Lab and Data: Lab Results 06/12/17 06/12/17 06/12/17 Range/Units 09:09 09:09 09:20 WBC (3.5-10.8) 10^3/ul RBC (4.0-5.4) 10^6/ul Hgb (14.0-18.0) g/dl Hct (42-52) % MCV (80-94) fL MCH (27-31) pg MCHC (31-36) g/dl RDW (10.5-15) % Plt Count (150-450) 10^3/ul MPV (7.4-10.4) um3 Neut % (Auto) (38-83) % Lymph % (Auto) (25-47) % [place] % (Auto) (1-9) % Eos % (Auto) (0-6) % Baso % (Auto) (0-2) % Absolute Neuts (auto) (1.5-7.7) 10^3/ul Absolute Lymphs (auto) (1.0-4.8) 10^3/ul Absolute Monos (auto) (0-0.8) 10^3/ul Absolute Eos (auto) (0-0.6) 10^3/ul Absolute Basos (auto) (0-0.2) 10^3/ul Absolute Nucleated RBC 10^3/ul Nucleated RBC % INR (Anticoag Therapy) 0.88 L (0.89-1.11) APTT 23.5 L (26.0-36.3) seconds Sodium 137 (133-145) mmol/L Potassium 4.3 (3.5-5.0) mmol/L Chloride 107 (101-111) mmol/L Carbon Dioxide 18 L (22-32) mmol/L Anion Gap 12 H (2-11) mmol/L BUN 27 H (6-24) mg/dL Creatinine 1.47 H (0.67-1.17) mg/dL Est GFR ( Amer) 61.5 (>60) Est GFR (Non-Af Amer) 47.8 (>60) BUN/Creatinine Ratio 18.4 (8-20) Glucose 148 H (70-100) mg/dL Lactic Acid 2.8 H* (0.5-2.0) mmol/L Calcium 9.8 (8.6-10.3) mg/dL Total Bilirubin 1.10 H (0.2-1.0) mg/dL AST 27 (13-39) U/L ALT 30 (7-52) U/L Alkaline Phosphatase 64 (34-104) U/L C-Reactive Protein 4.99 (< 5.00) mg/L Total Protein 7.3 (6.4-8.9) g/dL Albumin 4.2 (3.2-5.2) g/dL Globulin 3.1 (2-4) g/dL Albumin/Globulin Ratio 1.4 (1-3) 17 Range/Units 09:20 WBC 9.8 (3.5-10.8) 10^3/ul RBC 3.61 L (4.0-5.4) 10^6/ul Hgb 11.0 L (14.0-18.0) g/dl Hct 33 L (42-52) % MCV 92 (80-94) fL MCH 31 (27-31) pg MCHC 33 (31-36) g/dl RDW 14 (10.5-15) % Plt Count 249 (150-450) 10^3/ul MPV 8 (7.4-10.4) um3 Neut % (Auto) 83.1 H (38-83) % Lymph % (Auto) 8.8 L (25-47) % [place] % (Auto) 6.9 (1-9) % Eos % (Auto) 0.5 (0-6) % Baso % (Auto) 0.7 (0-2) % Absolute Neuts (auto) 8.1 H (1.5-7.7) 10^3/ul Absolute Lymphs (auto) 0.9 L (1.0-4.8) 10^3/ul Absolute Monos (auto) 0.7 (0-0.8) 10^3/ul Absolute Eos (auto) 0.1 (0-0.6) 10^3/ul Absolute Basos (auto) 0.1 (0-0.2) 10^3/ul Absolute Nucleated RBC 0 10^3/ul Nucleated RBC % 0 INR (Anticoag Therapy) (0.89-1.11) APTT (26.0-36.3) seconds Sodium (133-145) mmol/L Potassium (3.5-5.0) mmol/L Chloride (101-111) mmol/L Carbon Dioxide (22-32) mmol/L Anion Gap (2-11) mmol/L BUN (6-24) mg/dL Creatinine (0.67-1.17) mg/dL Est GFR ( Amer) (>60) Est GFR (Non-Af Amer) (>60) BUN/Creatinine Ratio (8-20) Glucose (70-100) mg/dL Lactic Acid (0.5-2.0) mmol/L Calcium (8.6-10.3) mg/dL Total Bilirubin (0.2-1.0) mg/dL AST (13-39) U/L ALT (7-52) U/L Alkaline Phosphatase (34-104) U/L C-Reactive Protein (< 5.00) mg/L Total Protein (6.4-8.9) g/dL Albumin (3.2-5.2) g/dL Globulin (2-4) g/dL Albumin/Globulin Ratio (1-3) 06/12/17 06/12/17 06/12/17 09:09 09:09 09:20 WBC RBC Hgb Hct MCV MCH MCHC RDW Plt Count MPV Neut % (Auto) Lymph % (Auto) [place] % (Auto) Eos % (Auto) Baso % (Auto) Absolute Neuts (auto) Absolute Lymphs (auto) Absolute Monos (auto) Absolute Eos (auto) Absolute Basos (auto) Absolute Nucleated RBC Nucleated RBC % INR (Anticoag Therapy) 0.88 L APTT 23.5 L Sodium 137 Potassium 4.3 Chloride 107 Carbon Dioxide 18 L Anion Gap 12 H BUN 27 H Creatinine 1.47 H Est GFR ( Amer) 61.5 Est GFR (Non-Af Amer) 47.8 BUN/Creatinine Ratio 18.4 Glucose 148 H Lactic Acid 2.8 H* Calcium 9.8 Phosphorus Magnesium Total Bilirubin 1.10 H AST 27 ALT 30 Alkaline Phosphatase 64 C-Reactive Protein 4.99 Total Protein 7.3 Albumin 4.2 Globulin 3.1 Albumin/Globulin Ratio 1.4 Prostate Specific Ag < 0.008 Blood Type Antibody Screen Crossmatch 06/12/17 06/12/17 06/12/17 09:20 16:50 16:50 WBC 9.8 RBC 3.61 L Hgb 11.0 L 9.6 L Hct 33 L 29 L MCV 92 MCH 31 MCHC 33 RDW 14 Plt Count 249 MPV 8 Neut % (Auto) 83.1 H Lymph % (Auto) 8.8 L [place] % (Auto) 6.9 Eos % (Auto) 0.5 Baso % (Auto) 0.7 Absolute Neuts (auto) 8.1 H Absolute Lymphs (auto) 0.9 L Absolute Monos (auto) 0.7 Absolute Eos (auto) 0.1 Absolute Basos (auto) 0.1 Absolute Nucleated RBC 0 Nucleated RBC % 0 INR (Anticoag Therapy) APTT Sodium Potassium Chloride Carbon Dioxide Anion Gap BUN Creatinine Est GFR ( Amer) Est GFR (Non-Af Amer) BUN/Creatinine Ratio Glucose Lactic Acid 3.1 H* Calcium Phosphorus Magnesium Total Bilirubin AST ALT Alkaline Phosphatase C-Reactive Protein Total Protein Albumin Globulin Albumin/Globulin Ratio Prostate Specific Ag Blood Type Antibody Screen Crossmatch 06/12/17 06/12/17 06/13/17 20:47 20:47 02:33 WBC 16.4 H RBC 2.67 L Hgb 9.2 L 8.3 L Hct 28 L 26 L MCV 96 H MCH 31 MCHC 32 RDW 15 Plt Count 141 L MPV 8 Neut % (Auto) 96.8 H Lymph % (Auto) 1.1 L [place] % (Auto) 2.0 Eos % (Auto) 0 Baso % (Auto) 0.1 Absolute Neuts (auto) 15.9 H Absolute Lymphs (auto) 0.2 L Absolute Monos (auto) 0.3 Absolute Eos (auto) 0 Absolute Basos (auto) 0 Absolute Nucleated RBC 0.24 Nucleated RBC % 1.4 INR (Anticoag Therapy) APTT Sodium Potassium Chloride Carbon Dioxide Anion Gap BUN Creatinine Est GFR ( Amer) Est GFR (Non-Af Amer) BUN/Creatinine Ratio Glucose Lactic Acid 4.5 H* Calcium Phosphorus Magnesium Total Bilirubin AST ALT Alkaline Phosphatase C-Reactive Protein Total Protein Albumin Globulin Albumin/Globulin Ratio Prostate Specific Ag Blood Type Antibody Screen Crossmatch 06/13/17 06/13/17 06/13/17 02:33 02:33 05:59 WBC RBC Hgb Hct MCV MCH MCHC RDW Plt Count MPV Neut % (Auto) Lymph % (Auto) [place] % (Auto) Eos % (Auto) Baso % (Auto) Absolute Neuts (auto) Absolute Lymphs (auto) Absolute Monos (auto) Absolute Eos (auto) Absolute Basos (auto) Absolute Nucleated RBC Nucleated RBC % INR (Anticoag Therapy) APTT Sodium 139 Potassium 3.8 Chloride 110 Carbon Dioxide 19 L Anion Gap 10 BUN 35 H Creatinine 2.52 H Est GFR ( Amer) 33.0 Est GFR (Non-Af Amer) 25.7 BUN/Creatinine Ratio 13.9 Glucose 139 H Lactic Acid 4.5 H* 4.7 H* Calcium 8.4 L Phosphorus Magnesium Total Bilirubin AST ALT Alkaline Phosphatase C-Reactive Protein Total Protein Albumin Globulin Albumin/Globulin Ratio Prostate Specific Ag Blood Type Antibody Screen Crossmatch 06/13/17 06/13/17 06/13/17 10:50 10:50 10:50 WBC RBC Hgb 7.5 L Hct 23 L MCV MCH MCHC RDW Plt Count MPV Neut % (Auto) Lymph % (Auto) [place] % (Auto) Eos % (Auto) Baso % (Auto) Absolute Neuts (auto) Absolute Lymphs (auto) Absolute Monos (auto) Absolute Eos (auto) Absolute Basos (auto) Absolute Nucleated RBC Nucleated RBC % INR (Anticoag Therapy) APTT Sodium 138 Potassium 4.9 Chloride 113 H Carbon Dioxide 17 L Anion Gap 8 BUN 35 H Creatinine 2.23 H Est GFR ( Amer) 38.0 Est GFR (Non-Af Amer) 29.5 BUN/Creatinine Ratio 15.7 Glucose 136 H Lactic Acid 3.4 H* Calcium 7.8 L Phosphorus 4.0 Magnesium Total Bilirubin AST ALT Alkaline Phosphatase C-Reactive Protein Total Protein Albumin 2.8 L Globulin Albumin/Globulin Ratio Prostate Specific Ag Blood Type Antibody Screen Crossmatch 06/13/17 06/13/17 06/13/17 10:50 14:29 14:29 WBC RBC Hgb 7.1 L Hct 22 L MCV MCH MCHC RDW Plt Count MPV Neut % (Auto) Lymph % (Auto) [place] % (Auto) Eos % (Auto) Baso % (Auto) Absolute Neuts (auto) Absolute Lymphs (auto) Absolute Monos (auto) Absolute Eos (auto) Absolute Basos (auto) Absolute Nucleated RBC Nucleated RBC % INR (Anticoag Therapy) APTT Sodium Potassium Chloride Carbon Dioxide Anion Gap BUN Creatinine Est GFR ( Amer) Est GFR (Non-Af Amer) BUN/Creatinine Ratio Glucose Lactic Acid 2.8 H* Calcium Phosphorus Magnesium Total Bilirubin AST ALT Alkaline Phosphatase C-Reactive Protein Total Protein Albumin Globulin Albumin/Globulin Ratio Prostate Specific Ag Blood Type A Positive Antibody Screen Negative Crossmatch See Detail 06/13/17 06/13/17 14:29 14:29 WBC RBC Hgb Hct MCV MCH MCHC RDW Plt Count MPV Neut % (Auto) Lymph % (Auto) [place] % (Auto) Eos % (Auto) Baso % (Auto) Absolute Neuts (auto) Absolute Lymphs (auto) Absolute Monos (auto) Absolute Eos (auto) Absolute Basos (auto) Absolute Nucleated RBC Nucleated RBC % INR (Anticoag Therapy) 1.17 H APTT 24.8 L Sodium Potassium Chloride Carbon Dioxide Anion Gap BUN Creatinine Est GFR ( Amer) Est GFR (Non-Af Amer) BUN/Creatinine Ratio Glucose Lactic Acid Calcium Phosphorus Magnesium 1.8 L Total Bilirubin AST ALT Alkaline Phosphatase C-Reactive Protein Total Protein Albumin Globulin Albumin/Globulin Ratio Prostate Specific Ag Blood Type Antibody Screen Crossmatch 06/12/17 06/12/17 06/12/17 09:09 09:09 09:20 WBC RBC Hgb Hct MCV MCH MCHC RDW Plt Count MPV Immature Gran % (Auto) Neut % (Auto) Lymph % (Auto) [place] % (Auto) Eos % (Auto) Baso % (Auto) Absolute Neuts (auto) Absolute Lymphs (auto) Absolute Monos (auto) Absolute Eos (auto) Absolute Basos (auto) Absolute Nucleated RBC Neutrophils % Band Neutrophils % Lymphocytes % Eosinophils % Metamyelocytes % Myelocytes % Nucleated RBC % Normal RBC Morphology Polychromasia Hypochromasia INR (Anticoag Therapy) 0.88 L APTT 23.5 L Sodium 137 Potassium 4.3 Chloride 107 Carbon Dioxide 18 L Anion Gap 12 H BUN 27 H Creatinine 1.47 H Est GFR ( Amer) 61.5 Est GFR (Non-Af Amer) 47.8 BUN/Creatinine Ratio 18.4 Glucose 148 H Lactic Acid 2.8 H* Calcium 9.8 Phosphorus Magnesium Total Bilirubin 1.10 H Direct Bilirubin Indirect Bilirubin AST 27 ALT 30 Alkaline Phosphatase 64 C-Reactive Protein 4.99 Total Protein 7.3 Albumin 4.2 Globulin 3.1 Albumin/Globulin Ratio 1.4 Prostate Specific Ag < 0.008 Urine Color Urine Appearance Urine pH Ur Specific [place] Urine Protein Urine Ketones Urine Blood Urine Nitrate Urine Bilirubin Urine Urobilinogen Ur Leukocyte Esterase Urine WBC (Auto) Urine RBC (Auto) Urine Bacteria Urine Glucose Blood Type Antibody Screen Crossmatch Donor Unit # Post-Trans Blood Type Post-Trans BJ[facility] 06/12/17 06/12/17 06/12/17 09:20 16:50 16:50 WBC 9.8 RBC 3.61 L Hgb 11.0 L 9.6 L Hct 33 L 29 L MCV 92 MCH 31 MCHC 33 RDW 14 Plt Count 249 MPV 8 Immature Gran % (Auto) Neut % (Auto) 83.1 H Lymph % (Auto) 8.8 L [place] % (Auto) 6.9 Eos % (Auto) 0.5 Baso % (Auto) 0.7 Absolute Neuts (auto) 8.1 H Absolute Lymphs (auto) 0.9 L Absolute Monos (auto) 0.7 Absolute Eos (auto) 0.1 Absolute Basos (auto) 0.1 Absolute Nucleated RBC 0 Neutrophils % Band Neutrophils % Lymphocytes % Eosinophils % Metamyelocytes % Myelocytes % Nucleated RBC % 0 Normal RBC Morphology Polychromasia Hypochromasia INR (Anticoag Therapy) APTT Sodium Potassium Chloride Carbon Dioxide Anion Gap BUN Creatinine Est GFR ( Amer) Est GFR (Non-Af Amer) BUN/Creatinine Ratio Glucose Lactic Acid 3.1 H* Calcium Phosphorus Magnesium Total Bilirubin Direct Bilirubin Indirect Bilirubin AST ALT Alkaline Phosphatase C-Reactive Protein Total Protein Albumin Globulin Albumin/Globulin Ratio Prostate Specific Ag Urine Color Urine Appearance Urine pH Ur Specific [place] Urine Protein Urine Ketones Urine Blood Urine Nitrate Urine Bilirubin Urine Urobilinogen Ur Leukocyte Esterase Urine WBC (Auto) Urine RBC (Auto) Urine Bacteria Urine Glucose Blood Type Antibody Screen Crossmatch Donor Unit # Post-Trans Blood Type Post-Trans BJ[facility] 06/12/17 06/12/17 06/13/17 20:47 20:47 02:33 WBC 16.4 H RBC 2.67 L Hgb 9.2 L 8.3 L Hct 28 L 26 L MCV 96 H MCH 31 MCHC 32 RDW 15 Plt Count 141 L MPV 8 Immature Gran % (Auto) Neut % (Auto) 96.8 H Lymph % (Auto) 1.1 L [place] % (Auto) 2.0 Eos % (Auto) 0 Baso % (Auto) 0.1 Absolute Neuts (auto) 15.9 H Absolute Lymphs (auto) 0.2 L Absolute Monos (auto) 0.3 Absolute Eos (auto) 0 Absolute Basos (auto) 0 Absolute Nucleated RBC 0.24 Neutrophils % Band Neutrophils % Lymphocytes % Eosinophils % Metamyelocytes % Myelocytes % Nucleated RBC % 1.4 Normal RBC Morphology Polychromasia Hypochromasia INR (Anticoag Therapy) APTT Sodium Potassium Chloride Carbon Dioxide Anion Gap BUN Creatinine Est GFR ( Amer) Est GFR (Non-Af Amer) BUN/Creatinine Ratio Glucose Lactic Acid 4.5 H* Calcium Phosphorus Magnesium Total Bilirubin Direct Bilirubin Indirect Bilirubin AST ALT Alkaline Phosphatase C-Reactive Protein Total Protein Albumin Globulin Albumin/Globulin Ratio Prostate Specific Ag Urine Color Urine Appearance Urine pH Ur Specific [place] Urine Protein Urine Ketones Urine Blood Urine Nitrate Urine Bilirubin Urine Urobilinogen Ur Leukocyte Esterase Urine WBC (Auto) Urine RBC (Auto) Urine Bacteria Urine Glucose Blood Type Antibody Screen Crossmatch Donor Unit # Post-Trans Blood Type Post-Trans BJ[facility] 06/13/17 06/13/17 06/13/17 02:33 02:33 05:59 WBC RBC Hgb Hct MCV MCH MCHC RDW Plt Count MPV Immature Gran % (Auto) Neut % (Auto) Lymph % (Auto) [place] % (Auto) Eos % (Auto) Baso % (Auto) Absolute Neuts (auto) Absolute Lymphs (auto) Absolute Monos (auto) Absolute Eos (auto) Absolute Basos (auto) Absolute Nucleated RBC Neutrophils % Band Neutrophils % Lymphocytes % Eosinophils % Metamyelocytes % Myelocytes % Nucleated RBC % Normal RBC Morphology Polychromasia Hypochromasia INR (Anticoag Therapy) APTT Sodium 139 Potassium 3.8 Chloride 110 Carbon Dioxide 19 L Anion Gap 10 BUN 35 H Creatinine 2.52 H Est GFR ( Amer) 33.0 Est GFR (Non-Af Amer) 25.7 BUN/Creatinine Ratio 13.9 Glucose 139 H Lactic Acid 4.5 H* 4.7 H* Calcium 8.4 L Phosphorus Magnesium Total Bilirubin Direct Bilirubin Indirect Bilirubin AST ALT Alkaline Phosphatase C-Reactive Protein Total Protein Albumin Globulin Albumin/Globulin Ratio Prostate Specific Ag Urine Color Urine Appearance Urine pH Ur Specific [place] Urine Protein Urine Ketones Urine Blood Urine Nitrate Urine Bilirubin Urine Urobilinogen Ur Leukocyte Esterase Urine WBC (Auto) Urine RBC (Auto) Urine Bacteria Urine Glucose Blood Type Antibody Screen Crossmatch Donor Unit # Post-Trans Blood Type Post-Trans BJ[facility] 06/13/17 06/13/17 06/13/17 10:50 10:50 10:50 WBC RBC Hgb 7.5 L Hct 23 L MCV MCH MCHC RDW Plt Count MPV Immature Gran % (Auto) Neut % (Auto) Lymph % (Auto) [place] % (Auto) Eos % (Auto) Baso % (Auto) Absolute Neuts (auto) Absolute Lymphs (auto) Absolute Monos (auto) Absolute Eos (auto) Absolute Basos (auto) Absolute Nucleated RBC Neutrophils % Band Neutrophils % Lymphocytes % Eosinophils % Metamyelocytes % Myelocytes % Nucleated RBC % Normal RBC Morphology Polychromasia Hypochromasia INR (Anticoag Therapy) APTT Sodium 138 Potassium 4.9 Chloride 113 H Carbon Dioxide 17 L Anion Gap 8 BUN 35 H Creatinine 2.23 H Est GFR ( Amer) 38.0 Est GFR (Non-Af Amer) 29.5 BUN/Creatinine Ratio 15.7 Glucose 136 H Lactic Acid 3.4 H* Calcium 7.8 L Phosphorus 4.0 Magnesium Total Bilirubin Direct Bilirubin Indirect Bilirubin AST ALT Alkaline Phosphatase C-Reactive Protein Total Protein Albumin 2.8 L Globulin Albumin/Globulin Ratio Prostate Specific Ag Urine Color Urine Appearance Urine pH Ur Specific [place] Urine Protein Urine Ketones Urine Blood Urine Nitrate Urine Bilirubin Urine Urobilinogen Ur Leukocyte Esterase Urine WBC (Auto) Urine RBC (Auto) Urine Bacteria Urine Glucose Blood Type Antibody Screen Crossmatch Donor Unit # Post-Trans Blood Type Post-Trans BJ[facility] 06/13/17 06/13/17 06/13/17 10:50 14:29 14:29 WBC RBC Hgb 7.1 L Hct 22 L MCV MCH MCHC RDW Plt Count MPV Immature Gran % (Auto) Neut % (Auto) Lymph % (Auto) [place] % (Auto) Eos % (Auto) Baso % (Auto) Absolute Neuts (auto) Absolute Lymphs (auto) Absolute Monos (auto) Absolute Eos (auto) Absolute Basos (auto) Absolute Nucleated RBC Neutrophils % Band Neutrophils % Lymphocytes % Eosinophils % Metamyelocytes % Myelocytes % Nucleated RBC % Normal RBC Morphology Polychromasia Hypochromasia INR (Anticoag Therapy) APTT Sodium Potassium Chloride Carbon Dioxide Anion Gap BUN Creatinine Est GFR ( Amer) Est GFR (Non-Af Amer) BUN/Creatinine Ratio Glucose Lactic Acid 2.8 H* Calcium Phosphorus Magnesium Total Bilirubin Direct Bilirubin Indirect Bilirubin AST ALT Alkaline Phosphatase C-Reactive Protein Total Protein Albumin Globulin Albumin/Globulin Ratio Prostate Specific Ag Urine Color Urine Appearance Urine pH Ur Specific [place] Urine Protein Urine Ketones Urine Blood Urine Nitrate Urine Bilirubin Urine Urobilinogen Ur Leukocyte Esterase Urine WBC (Auto) Urine RBC (Auto) Urine Bacteria Urine Glucose Blood Type A Positive Antibody Screen Negative Crossmatch See Detail Donor Unit # Post-Trans Blood Type Post-Trans [facility] 06/13/17 06/13/17 06/13/17 14:29 14:29 18:00 WBC RBC Hgb 7.7 L Hct 24 L MCV MCH MCHC RDW Plt Count MPV Immature Gran % (Auto) Neut % (Auto) Lymph % (Auto) [place] % (Auto) Eos % (Auto) Baso % (Auto) Absolute Neuts (auto) Absolute Lymphs (auto) Absolute Monos (auto) Absolute Eos (auto) Absolute Basos (auto) Absolute Nucleated RBC Neutrophils % Band Neutrophils % Lymphocytes % Eosinophils % Metamyelocytes % Myelocytes % Nucleated RBC % Normal RBC Morphology Polychromasia Hypochromasia INR (Anticoag Therapy) 1.17 H APTT 24.8 L Sodium Potassium Chloride Carbon Dioxide Anion Gap BUN Creatinine Est GFR ( Amer) Est GFR (Non-Af Amer) BUN/Creatinine Ratio Glucose Lactic Acid Calcium Phosphorus Magnesium 1.8 L Total Bilirubin Direct Bilirubin Indirect Bilirubin AST ALT Alkaline Phosphatase C-Reactive Protein Total Protein Albumin Globulin Albumin/Globulin Ratio Prostate Specific Ag Urine Color Urine Appearance Urine pH Ur Specific [place] Urine Protein Urine Ketones Urine Blood Urine Nitrate Urine Bilirubin Urine Urobilinogen Ur Leukocyte Esterase Urine WBC (Auto) Urine RBC (Auto) Urine Bacteria Urine Glucose Blood Type Antibody Screen Crossmatch Donor Unit # Post-Trans Blood Type Post-Trans [facility] 06/13/17 06/13/17 06/14/17 18:00 18:01 06:31 WBC 12.4 H RBC 2.69 L Hgb 8.4 L Hct 25 L MCV 93 MCH 31 MCHC 33 RDW 15 Plt Count 87 L D MPV 8 Immature Gran % (Auto) 23 H Neut % (Auto) 93.2 H Lymph % (Auto) 3.4 L [place] % (Auto) 2.6 Eos % (Auto) 0.5 Baso % (Auto) 0.3 Absolute Neuts (auto) 11.6 H Absolute Lymphs (auto) 0.4 L Absolute Monos (auto) 0.3 Absolute Eos (auto) 0.1 Absolute Basos (auto) 0 Absolute Nucleated RBC 0.02 Neutrophils % 70 Band Neutrophils % 10 H Lymphocytes % 6 L Eosinophils % 1 Metamyelocytes % 6 H Myelocytes % 7 H Nucleated RBC % 0.1 Normal RBC Morphology Not Reportable Polychromasia 1+ Hypochromasia 1+ INR (Anticoag Therapy) APTT Sodium Potassium Chloride Carbon Dioxide Anion Gap BUN Creatinine Est GFR ( Amer) Est GFR (Non-Af Amer) BUN/Creatinine Ratio Glucose Lactic Acid 1.9 Calcium Phosphorus Magnesium Total Bilirubin Direct Bilirubin Indirect Bilirubin AST ALT Alkaline Phosphatase C-Reactive Protein Total Protein Albumin Globulin Albumin/Globulin Ratio Prostate Specific Ag Urine Color Urine Appearance Urine pH Ur Specific [place] Urine Protein Urine Ketones Urine Blood Urine Nitrate Urine Bilirubin Urine Urobilinogen Ur Leukocyte Esterase Urine WBC (Auto) Urine RBC (Auto) Urine Bacteria Urine Glucose Blood Type Antibody Screen Crossmatch Donor Unit # [id number] Post-Trans Blood Type A Positive Post-Trans BJ[facility] Negative 06/14/17 06/14/17 06/14/17 06:31 12:24 12:24 WBC 12.7 H RBC 2.82 L Hgb 8.8 L Hct 26 L MCV 93 MCH 31 MCHC 33 RDW 15 Plt Count 88 L MPV 8 Immature Gran % (Auto) Neut % (Auto) 93.0 H Lymph % (Auto) 3.0 L [place] % (Auto) 2.8 Eos % (Auto) 1.0 Baso % (Auto) 0.2 Absolute Neuts (auto) 11.8 H Absolute Lymphs (auto) 0.4 L Absolute Monos (auto) 0.4 Absolute Eos (auto) 0.1 Absolute Basos (auto) 0 Absolute Nucleated RBC 0.02 Neutrophils % Band Neutrophils % Lymphocytes % Eosinophils % Metamyelocytes % Myelocytes % Nucleated RBC % 0.1 Normal RBC Morphology Polychromasia Hypochromasia INR (Anticoag Therapy) APTT Sodium 138 Potassium 4.4 Chloride 114 H Carbon Dioxide 21 L Anion Gap 3 BUN 24 Creatinine 1.14 Est GFR ( Amer) 82.4 Est GFR (Non-Af Amer) 64.1 BUN/Creatinine Ratio 21.1 H Glucose 111 H Lactic Acid 1.2 Calcium 8.4 L Phosphorus Magnesium 1.9 Total Bilirubin Direct Bilirubin Indirect Bilirubin AST ALT Alkaline Phosphatase C-Reactive Protein Total Protein Albumin Globulin Albumin/Globulin Ratio Prostate Specific Ag Urine Color Urine Appearance Urine pH Ur Specific Adams Urine Protein Urine Ketones Urine Blood Urine Nitrate Urine Bilirubin Urine Urobilinogen Ur Leukocyte Esterase Urine WBC (Auto) Urine RBC (Auto) Urine Bacteria Urine Glucose Blood Type Antibody Screen Crossmatch Donor Unit # Post-Trans Blood Type Post-Trans [facility] 06/14/17 06/14/17 12:24 12:50 WBC RBC Hgb Hct MCV MCH MCHC RDW Plt Count MPV Immature Gran % (Auto) Neut % (Auto) Lymph % (Auto) [place] % (Auto) Eos % (Auto) Baso % (Auto) Absolute Neuts (auto) Absolute Lymphs (auto) Absolute Monos (auto) Absolute Eos (auto) Absolute Basos (auto) Absolute Nucleated RBC Neutrophils % Band Neutrophils % Lymphocytes % Eosinophils % Metamyelocytes % Myelocytes % Nucleated RBC % Normal RBC Morphology Polychromasia Hypochromasia INR (Anticoag Therapy) APTT Sodium 138 Potassium 4.3 Chloride 114 H Carbon Dioxide 20 L Anion Gap 4 BUN 19 Creatinine 0.98 Est GFR ( Amer) 98.1 Est GFR (Non-Af Amer) 76.3 BUN/Creatinine Ratio 19.4 Glucose 114 H Lactic Acid Calcium 8.7 Phosphorus Magnesium Total Bilirubin 2.00 H Direct Bilirubin 0.30 H Indirect Bilirubin 1.7 H AST 36 ALT 24 Alkaline Phosphatase 54 C-Reactive Protein 232.70 H Total Protein 5.9 L Albumin 3.1 L Globulin 2.8 Albumin/Globulin Ratio 1.1 Prostate Specific Ag Urine Color Yellow Urine Appearance Cloudy Urine pH 6 Ur Specific [place] 1.020 Urine Protein 1+(30 mg/dl) H Urine Ketones Negative Urine Blood 3+ H Urine Nitrate Negative Urine Bilirubin Negative Urine Urobilinogen Negative Ur Leukocyte Esterase Negative Urine WBC (Auto) 3+(>20/hpf) H Urine RBC (Auto) 3+(>10/hpf) H Urine Bacteria Absent Urine Glucose Negative Blood Type Antibody Screen Crossmatch Donor Unit # Post-Trans Blood Type Post-Trans BJORN Microbiology and Other Data: Microbiology 06/13/17 18:01 Transfusion Reaction Culture - Preliminary Blood Bag Culture Under Incubation Transfusion Reaction Gram Stain - Final Assess/Plan/Problems-Billing Assessment: Patient is a 66yo male with a PMH significant for prostate cancer with radical prostatectomy and radiation cystitis who p with complete urinary obstruction from blood clots. Patient today is suffering from acute blood loss anemia, withdrawal from alcohol and probable urinary tract infection. Patient will stay admitted for monitoring.. - Patient Problems (1) Chronic radiation cystitis Current Visit: Yes Status: Acute Code(s): N30.40 - IRRADIATION CYSTITIS WITHOUT HEMATURIA SNOMED Code(s): 293030402 Comment: Currently back on low rate CBI with clear drainage. Urinary sample taken showing WBCs and RBCs. Will treat empirically for Pyelonephritis due to urinary tract manipulation and increased CRP and bandemia. (2) Acute blood loss anemia Current Visit: Yes Status: Acute Code(s): D62 - ACUTE POSTHEMORRHAGIC ANEMIA SNOMED Code(s): 835802833 Comment: Hemoglobin at 8.8, lactic acid normal. Distal perfusion intact. (3) History of prostate cancer Current Visit: Yes Status: Acute Code(s): Z85.46 - PERSONAL HISTORY OF MALIGNANT NEOPLASM OF PROSTATE SNOMED Code(s): 389455204 Comment: PSA currently undetectable indicating no residual disease. (4) Alcohol abuse Current Visit: Yes Status: Acute Code(s): F10.10 - ALCOHOL ABUSE, UNCOMPLICATED SNOMED Code(s): 96526444 Comment: Patient still showing signs consistent with alcohol withdrawal, will keep on WAM protocol, but will be hesitant to give large doses of ativan to avoid exacerbating delirium. (5) Alcohol withdrawal delirium, acute, hyperactive Current Visit: Yes Status: Acute Code(s): F10.231 - ALCOHOL DEPENDENCE WITH WITHDRAWAL DELIRIUM SNOMED Code(s): 6680146 Comment: Patient continues to score on WAM scale. Will continue on ativan per protocol. (6) DVT prophylaxis Current Visit: Yes Status: Acute Code(s): DUB4384 - SNOMED Code(s): 581172300 Comment: Heparin contraindicated due to cystitis and thrombocytopenia. SCDs in place. No swelling or pain in lower extremities. (7) Elevated C-reactive protein (CRP) Current Visit: Yes Status: Acute Code(s): R79.82 - ELEVATED C-REACTIVE PROTEIN (CRP) SNOMED Code(s): 927761494 Comment: Patient has an elevated CRP. Will treat empirically for pyelonephritis with Bactrim and continue to monitor. (8) DNR (do not resuscitate) discussion Current Visit: Yes Status: Acute Code(s): Z71.89 - OTHER SPECIFIED COUNSELING SNOMED Code(s): 750539705 Comment: Discussed with patient that he would like to be a DNR. (9) Hyperbilirubinemia Current Visit: Yes Status: Acute Code(s): E80.6 - OTHER DISORDERS OF BILIRUBIN METABOLISM SNOMED Code(s): 39138322 Comment: Icterus and increased unconjugated hyperbilirubinemia with normal LFTs and no history of liver disease. 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 Will continue to monitor. Status and Disposition: Patient is admitted inpatient. LOS estimated at 5 days.
[2017-06-15] MEDS: TRIMETH IVPB SCH ×2 (03:41→15:31)
[2017-06-15] MEDS: SULFAMETHOXAZOLE IVPB SCH ×2 (03:41→15:31)
[2017-06-15] MEDS: D5W IVPB SCH ×2 (03:41→15:31)
[2017-06-15] MEDS: LORazepam INJ* 2 MG/ML 1 ML VIAL IV PUSH SCH (04:41)
[2017-06-15 05:43] LABS: Hematocrit 24 % (42-52); Hemoglobin 7.9 g/dl (14.0-18.0); Mean Corpuscular HGB Conc 34 g/dl (31-36); Mean Corpuscular Hemoglobin 31 pg (27-31); Mean Corpuscular Volume 92 fL (80-94); Mean Platelet Volume 8 um3 (7.4-10.4); Red Blood Count 2.58 10^6/ul (4.0-5.4); Red Cell Distribution Width 15 % (10.5-15); White Blood Count 9.6 10^3/ul (3.5-10.8)
[2017-06-15 05:44] LABS: Comments Flag Yes
[2017-06-15 05:45] LABS: Add Diff/Slide Review? Slide Review Added
[2017-06-15 05:54] LABS: Albumin 2.5 g/dL (3.2-5.2); BUN/Creatinine Ratio 15.3 (8-20); Calcium 8.1 mg/dL (8.6-10.3); EGFR African American 115.6 (>60); EGFR Non-African American 89.9 (>60); Globulin 2.6 g/dL (2-4); Magnesium 1.7 mg/dL (1.9-2.7); Potassium 3.7 mmol/L (3.5-5.0); Total Protein 5.1 g/dL (6.4-8.9)
[2017-06-15] MEDS: NS 0.9% w/ 20 Meq KCL 1000 ML* 1,000 ML IV SCH ×2 (08:33→15:33)
[2017-06-15] MEDS: Omeprazole CAP* 20 MG PO SCH (08:37)
[2017-06-15] MEDS: Atorvastatin* 80 MG TAB PO SCH (08:37)
[2017-06-15] MEDS: buPROPion SR TAB.SR* 150 MG PO SCH (08:38)
[2017-06-15] MEDS: Calcium Carbonate TAB* 1250 MG (CALCIUM 500 MG) PO SCH ×2 (08:38→20:55)
[2017-06-15] MEDS: Ezetimibe TAB* 10 MG PO SCH (08:39)
[2017-06-15] MEDS: Oxybutynin TAB* 5 MG PO SCH ×2 (08:39→20:56)
[2017-06-15] MEDS: Acetaminophen TAB* 325 MG PO PRN (13:48)
--- NOTE | 2017-06-15 20:07 | PN ---
Subjective Date of Service: 06/15/17 Interval History: Pt 1.5mg ativan at 4am. Pt mentation markedly improved compared to yesterday and improved throughout the day. clear urine. ate some. able to converse Hgb 7.9 Family History: Unchanged from Admission Social History: Unchanged from Admission Past Medical History: Unchanged from Admission Objective Active Medications: Acetaminophen (Tylenol Tab*) 650 mg PO Q6H PRN PRN Reason: PAIN - MILD TO MODERATE Last Admin: 06/15/17 13:48 Dose: 650 mg Atorvastatin Calcium (Lipitor*) 80 mg PO DAILY [facility] Last Admin: 06/15/17 08:37 Dose: Not Given Bupropion HCl (Wellbutrin Sr Tab*) 150 mg PO DAILY [facility] Last Admin: 06/15/17 08:38 Dose: Not Given Calcium Carbonate (Calcium Carbonate Tab*) 1,250 mg PO BID [facility] Last Admin: 06/15/17 08:38 Dose: Not Given Ezetimibe (Zetia Tab*) 10 mg PO DAILY [facility] Last Admin: 06/15/17 08:39 Dose: Not Given Hydralazine HCl (Apresoline Iv*) 5 mg IV SLOW PU Q6H PRN PRN Reason: SYSTOLIC BP GREATER THAN: Last Admin: 06/14/17 12:33 Dose: 5 mg Potassium Chloride/Sodium Chloride (Ns 0.9% W/ 20 Meq Kcl 1000 Ml*) 1,000 mls @ 175 mls/hr IV PER RATE [facility] Last Admin: 06/15/17 15:33 Dose: 175 mls/hr Trimethoprim/Sulfamethoxazole (480 mg/ Dextrose) 530 mls @ 265 mls/hr IVPB Q12H [facility] Last Admin: 06/15/17 15:31 Dose: 265 mls/hr Lorazepam (Ativan Inj*) 0 - 3 mg IV PUSH .PER [facility] PROTOCOL [facility] PRN Reason: Protocol Last Admin: 06/15/17 04:41 Dose: 1.5 mg Morphine Sulfate (Morphine Inj (Syringe)*) 4 mg IV Q4H PRN PRN Reason: PAIN - SEVERE Last Admin: 06/13/17 05:16 Dose: 4 mg Omeprazole (Prilosec Cap*) 20 mg PO DAILY@0730 [facility] Last Admin: 06/15/17 08:37 Dose: Not Given Oxybutynin Chloride (Ditropan Tab*) 5 mg PO BID [facility] Last Admin: 06/15/17 08:39 Dose: Not Given Vital Signs 06/14/17 06/15/17 06/15/17 20:02 00:10 02:09 Temperature 99.2 F 98.3 F 97.9 F Pulse Rate 77 73 72 Respiratory 28 20 16 Rate Blood Pressure 146/82 161/88 152/83 (mmHg) O2 Sat by Pulse 97 97 100 Oximetry 06/15/17 06/15/17 06/15/17 04:27 04:41 05:41 Temperature Pulse Rate 72 Respiratory 18 20 Rate Blood Pressure 165/85 (mmHg) O2 Sat by Pulse Oximetry 06/15/17 06/15/17 06/15/17 06:07 07:29 07:54 Temperature Pulse Rate 68 72 Respiratory 20 20 Rate Blood Pressure 167/87 164/96 (mmHg) O2 Sat by Pulse 97 Oximetry 06/15/17 06/15/17 06/15/17 10:09 12:20 14:10 Temperature 98.2 F Pulse Rate 66 70 Respiratory 24 24 Rate Blood Pressure 178/85 164/68 164/84 (mmHg) O2 Sat by Pulse 97 Oximetry 06/15/17 06/15/17 15:58 18:44 Temperature 98.5 F 99.0 F Pulse Rate 66 66 Respiratory 20 20 Rate Blood Pressure 155/85 154/88 (mmHg) O2 Sat by Pulse 98 96 Oximetry Oxygen Devices in Use Now: Nasal Cannula - 1 liter NC Appearance: sleepy but arousable, no acute distress. Ears/Nose/Mouth/Throat: NL Teeth, Lips, Gums, Mucous Membranes Moist Neck: Trachea Midline Respiratory: Symmetrical Chest Expansion and Respiratory Effort, Clear to Auscultation Cardiovascular: NL Sounds; No Murmurs; No JVD, RRR Abdominal: NL Sounds; No Tenderness; No Distention Extremities: No Edema Skin: No Rash or Ulcers Neurological: - - oriented x3, though sleepy. no hand tremor. Result Diagrams: 06/15/17 05:21 06/15/17 05:21 Additional Lab and Data: Laboratory Results - last 24 hr 06/13/17 06/13/17 06/14/17 10:50 18:01 06:31 WBC RBC Hgb Hct MCV MCH MCHC RDW Plt Count MPV Neut % (Auto) Lymph % (Auto) [place] % (Auto) Eos % (Auto) Baso % (Auto) Absolute Neuts (auto) Absolute Lymphs (auto) Absolute Monos (auto) Absolute Eos (auto) Absolute Basos (auto) Absolute Nucleated RBC Nucleated RBC % Hem Pathologist Commnt Sodium Potassium Chloride Carbon Dioxide Anion Gap BUN Creatinine Est GFR ( Amer) Est GFR (Non-Af Amer) BUN/Creatinine Ratio Glucose Lactic Acid Calcium Magnesium Total Bilirubin AST ALT Alkaline Phosphatase Ammonia Total Protein Albumin Globulin Albumin/Globulin Ratio Blood Type A Positive Antibody Screen Negative Crossmatch See Detail Transfusion React Rpt Donor Unit # [id number] Reaction Interpretation 06/15/17 06/15/17 06/15/17 05:21 05:21 05:21 WBC 9.6 RBC 2.58 L Hgb 7.9 L Hct 24 L MCV 92 MCH 31 MCHC 34 RDW 15 Plt Count 79 L MPV 8 Neut % (Auto) 89.7 H Lymph % (Auto) 5.5 L [place] % (Auto) 2.9 Eos % (Auto) 1.7 Baso % (Auto) 0.2 Absolute Neuts (auto) 8.6 H Absolute Lymphs (auto) 0.5 L Absolute Monos (auto) 0.3 Absolute Eos (auto) 0.2 Absolute Basos (auto) 0 Absolute Nucleated RBC 0.01 Nucleated RBC % 0.1 Hem Pathologist Commnt Sodium 136 Potassium 3.7 Chloride 112 H Carbon Dioxide 18 L Anion Gap 6 BUN 13 Creatinine 0.85 Est GFR ( Amer) 115.6 Est GFR (Non-Af Amer) 89.9 BUN/Creatinine Ratio 15.3 Glucose 126 H Lactic Acid Calcium 8.1 L Magnesium 1.7 L Total Bilirubin 1.00 AST 28 ALT 22 Alkaline Phosphatase 50 Ammonia 37 Total Protein 5.1 L Albumin 2.5 L Globulin 2.6 Albumin/Globulin Ratio 1.0 Blood Type Antibody Screen Crossmatch Transfusion React Rpt Donor Unit # Reaction Interpretation 06/15/17 05:21 WBC RBC Hgb Hct MCV MCH MCHC RDW Plt Count MPV Neut % (Auto) Lymph % (Auto) [place] % (Auto) Eos % (Auto) Baso % (Auto) Absolute Neuts (auto) Absolute Lymphs (auto) Absolute Monos (auto) Absolute Eos (auto) Absolute Basos (auto) Absolute Nucleated RBC Nucleated RBC % Hem Pathologist Commnt Sodium Potassium Chloride Carbon Dioxide Anion Gap BUN Creatinine Est GFR ( Amer) Est GFR (Non-Af Amer) BUN/Creatinine Ratio Glucose Lactic Acid 1.3 Calcium Magnesium Total Bilirubin AST ALT Alkaline Phosphatase Ammonia Total Protein Albumin Globulin Albumin/Globulin Ratio Blood Type Antibody Screen Crossmatch Transfusion React Rpt Donor Unit # Reaction Interpretation Microbiology and Other Data: Microbiology 06/13/17 18:01 Transfusion Reaction Culture - Preliminary Blood Bag No Growth Day 2 Transfusion Reaction Gram Stain - Final 06/12/17 09:40 Aerobic Blood Culture - Preliminary Blood Venous No Growth Day 3 Anaerobic Blood Culture - Preliminary No Growth Day 3 Blood Culture - Final 06/12/17 09:20 Aerobic Blood Culture - Preliminary Blood Venous No Growth Day 3 Anaerobic Blood Culture - Preliminary No Growth Day 3 Blood Culture - Final Assess/Plan/Problems-Billing Assessment: 66yo male PMH prostate cancer s/p radical prostatectomy and radiation cystitis who pw with complete urinary obstruction from blood clots. Course c/b AMS/ lethargy and alcohol withdrawal (possible levaquin, UTI and hypercarbia contributing). Mentation markedly improved, fox with clear urine. - Patient Problems (1) Acute blood loss anemia Current Visit: Yes Status: Acute Code(s): D62 - ACUTE POSTHEMORRHAGIC ANEMIA SNOMED Code(s): 347466876 Comment: Hemoglobin at 8.8, lactic acid normal. Distal perfusion intact. (2) Alcohol abuse Current Visit: Yes Status: Acute Code(s): F10.10 - ALCOHOL ABUSE, UNCOMPLICATED SNOMED Code(s): 43459977 Comment: Decreased ativan requirment. Went on sosa last 4 weeks while on vacation/travel from home. start thiamine, folate, MVI (3) Alcohol withdrawal delirium, acute, hyperactive Current Visit: Yes Status: Acute Code(s): F10.231 - ALCOHOL DEPENDENCE WITH WITHDRAWAL DELIRIUM SNOMED Code(s): 3305911 Comment: [facility] protocol (4) Chronic radiation cystitis Current Visit: Yes Status: Acute Code(s): N30.40 - IRRADIATION CYSTITIS WITHOUT HEMATURIA SNOMED Code(s): 898835182 Comment: fox with clear urine. UA WBCs and RBCs. treat empirically with bactrim for Pyelonephritis given left perinephric stranding. likely outpatient cystoscopy but f/u with Urology before discharge (5) History of prostate cancer Current Visit: Yes Status: Acute Code(s): Z85.46 - PERSONAL HISTORY OF MALIGNANT NEOPLASM OF PROSTATE SNOMED Code(s): 285863029 Comment: PSA currently undetectable Status and Disposition: Medicine inpatient. Anticipate d/c Sunday 06/17 Attending: Naga Hartley
[2017-06-15] MEDS ORDERED: Thiamine TAB* 100 MG TAB PO ONE (20:09)
[2017-06-16] MEDS: NS 0.9% w/ 20 Meq KCL 1000 ML* 1,000 ML IV SCH ×2 (01:57→18:59)
[2017-06-16] MEDS: SULFAMETHOXAZOLE IVPB SCH ×2 (03:10→15:30)
[2017-06-16] MEDS: TRIMETH IVPB SCH ×2 (03:10→15:30)
[2017-06-16] MEDS: D5W IVPB SCH ×2 (03:10→15:30)
[2017-06-16] MEDS: hydrALAZINE IV* 20 MG/ML VIAL IV SLOW PU PRN ×2 (04:22→10:23)
[2017-06-16] MEDS: Oxybutynin TAB* 5 MG PO SCH ×2 (08:08→19:59)
[2017-06-16] MEDS: Calcium Carbonate TAB* 1250 MG (CALCIUM 500 MG) PO SCH ×2 (08:08→19:59)
[2017-06-16] MEDS: Ezetimibe TAB* 10 MG PO SCH (08:08)
[2017-06-16] MEDS: Multivitamins/Minerals TAB PO SCH (08:08)
[2017-06-16] MEDS: Omeprazole CAP* 20 MG PO SCH (08:08)
[2017-06-16] MEDS: Folic Acid TAB* 1 MG PO SCH (08:09)
[2017-06-16] MEDS: buPROPion SR TAB.SR* 150 MG PO SCH (08:09)
[2017-06-16] MEDS: Atorvastatin* 80 MG TAB PO SCH (08:09)
[2017-06-16] MEDS: Thiamine TAB* 100 MG TAB PO SCH (08:09)
[2017-06-16 09:50] LABS: Hematocrit 28 % (42-52); Hemoglobin 9.6 g/dl (14.0-18.0); Mean Corpuscular HGB Conc 34 g/dl (31-36); Mean Corpuscular Hemoglobin 31 pg (27-31); Mean Corpuscular Volume 91 fL (80-94); Mean Platelet Volume 9 um3 (7.4-10.4); Red Blood Count 3.08 10^6/ul (4.0-5.4); Red Cell Distribution Width 15 % (10.5-15); White Blood Count 8.5 10^3/ul (3.5-10.8)
[2017-06-16 09:52] LABS: Add Diff/Slide Review? Slide Review Added; Comments Flag Yes
[2017-06-16 10:07] LABS: BUN/Creatinine Ratio 12.4 (8-20); Calcium 8.4 mg/dL (8.6-10.3); EGFR African American 109.7 (>60); EGFR Non-African American 85.3 (>60); Magnesium 1.5 mg/dL (1.9-2.7); Potassium 3.7 mmol/L (3.5-5.0)
--- NOTE | 2017-06-16 12:50 | PN ---
Subjective Date of Service: 06/16/17 Interval History: Mentation continues to rapidly improve. now likely back to baseline completely. Urine slight pink, 1 small clot in tubing. No ativan per [facility] Family History: Unchanged from Admission Social History: Unchanged from Admission Past Medical History: Unchanged from Admission Objective Active Medications: Acetaminophen (Tylenol Tab*) 650 mg PO Q6H PRN PRN Reason: PAIN - MILD TO MODERATE Last Admin: 06/15/17 13:48 Dose: 650 mg Atorvastatin Calcium (Lipitor*) 80 mg PO DAILY [facility] Last Admin: 06/16/17 08:09 Dose: 80 mg Bupropion HCl (Wellbutrin Sr Tab*) 150 mg PO DAILY [facility] Last Admin: 06/16/17 08:09 Dose: 150 mg Calcium Carbonate (Calcium Carbonate Tab*) 1,250 mg PO BID [facility] Last Admin: 06/16/17 08:08 Dose: 1,250 mg Ezetimibe (Zetia Tab*) 10 mg PO DAILY [facility] Last Admin: 06/16/17 08:08 Dose: 10 mg Folic Acid (Folvite Tab*) 1 mg PO DAILY [facility] Last Admin: 06/16/17 08:09 Dose: 1 mg Hydralazine HCl (Apresoline Iv*) 5 mg IV SLOW PU Q6H PRN PRN Reason: SYSTOLIC BP GREATER THAN: Last Admin: 06/16/17 10:23 Dose: 5 mg Potassium Chloride/Sodium Chloride (Ns 0.9% W/ 20 Meq Kcl 1000 Ml*) 1,000 mls @ 175 mls/hr IV PER RATE [facility] Last Admin: 06/16/17 01:57 Dose: 175 mls/hr Trimethoprim/Sulfamethoxazole (480 mg/ Dextrose) 530 mls @ 265 mls/hr IVPB Q12H [facility] Last Admin: 06/16/17 03:10 Dose: 265 mls/hr Lorazepam (Ativan Inj*) 0 - 3 mg IV PUSH .PER [facility] PROTOCOL [facility] PRN Reason: Protocol Last Admin: 06/15/17 04:41 Dose: 1.5 mg Morphine Sulfate (Morphine Inj (Syringe)*) 4 mg IV Q4H PRN PRN Reason: PAIN - SEVERE Last Admin: 06/13/17 05:16 Dose: 4 mg Multivitamins/Minerals (Theragran/Minerals Tab*) 1 tab PO DAILY [facility] Last Admin: 06/16/17 08:08 Dose: 1 tab Omeprazole (Prilosec Cap*) 20 mg PO DAILY@0730 [facility] Last Admin: 06/16/17 08:08 Dose: 20 mg Oxybutynin Chloride (Ditropan Tab*) 5 mg PO BID [facility] Last Admin: 06/16/17 08:08 Dose: 5 mg Potassium Chloride (Klor Con Er Tab*) 40 meq PO ONCE ONE Stop: 06/16/17 14:01 Thiamine HCl (Vitamin B-1 Tab*) 100 mg PO DAILY [facility] Last Admin: 06/16/17 08:09 Dose: 100 mg Vital Signs 06/15/17 06/15/17 06/15/17 14:10 15:58 18:44 Temperature 98.5 F 99.0 F Pulse Rate 66 66 Respiratory 20 20 Rate Blood Pressure 164/84 155/85 154/88 (mmHg) O2 Sat by Pulse 98 96 Oximetry 06/15/17 06/15/17 06/15/17 20:00 20:02 22:33 Temperature 98.7 F 98.5 F Pulse Rate 65 65 Respiratory 18 20 20 Rate Blood Pressure 157/86 153/90 (mmHg) O2 Sat by Pulse 97 96 Oximetry 06/16/17 06/16/17 06/16/17 00:05 02:09 04:22 Temperature 98.3 F 98.9 F 98.6 F Pulse Rate 65 68 68 Respiratory 20 20 20 Rate Blood Pressure 167/96 151/93 190/98 (mmHg) O2 Sat by Pulse 96 95 97 Oximetry 06/16/17 06/16/17 06/16/17 05:20 06:14 08:05 Temperature 98.3 F Pulse Rate 61 70 Respiratory 20 Rate Blood Pressure 165/96 168/78 166/77 (mmHg) O2 Sat by Pulse 97 Oximetry 06/16/17 06/16/17 06/16/17 08:15 08:16 10:19 Temperature Pulse Rate 67 Respiratory 20 20 Rate Blood Pressure 184/88 (mmHg) O2 Sat by Pulse Oximetry Oxygen Devices in Use Now: Nasal Cannula - 1 liter NC Appearance: No acute distress, Alert and much clearer voice Eyes: No Scleral Icterus, PERRLA Ears/Nose/Mouth/Throat: NL Teeth, Lips, Gums, Mucous Membranes Moist Neck: NL Appearance and Movements; NL JVP, Trachea Midline Respiratory: Symmetrical Chest Expansion and Respiratory Effort, Clear to Auscultation Cardiovascular: NL Sounds; No Murmurs; No JVD, RRR Abdominal: NL Sounds; No Tenderness; No Distention, No Hepatosplenomegaly Extremities: No Edema, No Clubbing, Cyanosis Skin: No Rash or Ulcers Neurological: Alert and Oriented x 3 Result Diagrams: 06/16/17 09:17 06/16/17 09:22 Additional Lab and Data: Laboratory Results - last 24 hr 06/16/17 06/16/17 09:17 09:22 WBC 8.5 RBC 3.08 L Hgb 9.6 L Hct 28 L MCV 91 MCH 31 MCHC 34 RDW 15 Plt Count 103 L MPV 9 Neut % (Auto) 82.6 Lymph % (Auto) 7.8 L [place] % (Auto) 6.6 Eos % (Auto) 2.7 Baso % (Auto) 0.3 Absolute Neuts (auto) 7.0 Absolute Lymphs (auto) 0.7 L Absolute Monos (auto) 0.6 Absolute Eos (auto) 0.2 Absolute Basos (auto) 0 Absolute Nucleated RBC 0.01 Nucleated RBC % 0.1 Sodium 136 Potassium 3.7 Chloride 110 Carbon Dioxide 19 L Anion Gap 7 BUN 11 Creatinine 0.89 Est GFR ( Amer) 109.7 Est GFR (Non-Af Amer) 85.3 BUN/Creatinine Ratio 12.4 Glucose 102 H Calcium 8.4 L Magnesium 1.5 L Microbiology and Other Data: Microbiology 06/13/17 18:01 Transfusion Reaction Culture - Preliminary Blood Bag No Growth Day 3 Transfusion Reaction Gram Stain - Final 06/12/17 09:40 Aerobic Blood Culture - Preliminary Blood Venous No Growth Day 4 Anaerobic Blood Culture - Preliminary No Growth Day 4 Blood Culture - Final 06/12/17 09:20 Aerobic Blood Culture - Preliminary Blood Venous No Growth Day 4 Anaerobic Blood Culture - Preliminary No Growth Day 4 Blood Culture - Final Assess/Plan/Problems-Billing Assessment: 66 yo male PMH prostate cancer s/p radical prostatectomy and radiation cystitis who p/w complete urinary obstruction from blood clots. Course c/b AMS/lethargy and alcohol withdrawal (possible levaquin, UTI and hypercarbia contributing). Mentation markedly improved and quite close to baseline, fox with slight pink urine. CBI stopped. - Patient Problems (1) Chronic radiation cystitis Current Visit: Yes Status: Acute Code(s): N30.40 - IRRADIATION CYSTITIS WITHOUT HEMATURIA SNOMED Code(s): 629124388 Comment: fox with slight pink urine. Capping CBI and plan for replace to from 24 to 18g fox if continues stability. treating empirically with bactrim for Pyelonephritis given left perinephric stranding and left flank pain(resolved) and 3+ wbc on UA. No UCx?. Per Dr. Gonzalez planned outpatient cystoscopy (2) Acute blood loss anemia Current Visit: Yes Status: Acute Code(s): D62 - ACUTE POSTHEMORRHAGIC ANEMIA SNOMED Code(s): 370617725 Comment: Hemoglobin at 8.8-> 7.9-> 9.6. 2/2 hematuria s/p transfusions 06/13 (3) Alcohol abuse Current Visit: Yes Status: Acute Code(s): F10.10 - ALCOHOL ABUSE, UNCOMPLICATED SNOMED Code(s): 62810291 Comment: Not requiring ativan requirment. Per had increaesed alcohol use 1-2 pints vokda for last 4 weeks while on vacation/travel from home. continue thiamine, folate, MVI (4) Alcohol withdrawal delirium, acute, hyperactive Current Visit: Yes Status: Acute Code(s): F10.231 - ALCOHOL DEPENDENCE WITH WITHDRAWAL DELIRIUM SNOMED Code(s): 2261307 Comment: largely resolved. WAM protocol but not required ativan. (5) History of prostate cancer Current Visit: Yes Status: Acute Code(s): Z85.46 - PERSONAL HISTORY OF MALIGNANT NEOPLASM OF PROSTATE SNOMED Code(s): 317697032 Comment: PSA currently undetectable Status and Disposition: Medicine inpatient. Anticipate d/c Sunday 06/17 Attending: Naga Hartley
[2017-06-16] MEDS ORDERED: Potassium Chlor TAB* 20 MEQ TAB.ER PO ONE (14:00)
[2017-06-16] MEDS ORDERED: Polyethylene Glycol 3350* 17 GM PACKET PO PRN (17:33)
[2017-06-16] MEDS ORDERED: Docusate CAP* 100 MG PO PRN (17:33)
[2017-06-17] MEDS: NS 0.9% w/ 20 Meq KCL 1000 ML* 1,000 ML IV SCH ×3 (03:32→20:55)
[2017-06-17] MEDS: TRIMETH IVPB SCH ×2 (03:37→18:09)
[2017-06-17] MEDS: D5W IVPB SCH ×2 (03:37→18:09)
[2017-06-17] MEDS: SULFAMETHOXAZOLE IVPB SCH ×2 (03:37→18:09)
[2017-06-17 05:13] LABS: Hematocrit 28 % (42-52); Hemoglobin 9.3 g/dl (14.0-18.0); Mean Corpuscular HGB Conc 34 g/dl (31-36); Mean Corpuscular Hemoglobin 31 pg (27-31); Mean Corpuscular Volume 91 fL (80-94); Mean Platelet Volume 9 um3 (7.4-10.4); Red Blood Count 3.04 10^6/ul (4.0-5.4); Red Cell Distribution Width 15 % (10.5-15); White Blood Count 6.5 10^3/ul (3.5-10.8)
[2017-06-17 05:22] LABS: Add Diff/Slide Review? Slide Review Added; Comments Flag Yes
[2017-06-17 05:28] LABS: BUN/Creatinine Ratio 13.8 (8-20); Calcium 8.4 mg/dL (8.6-10.3); EGFR African American 102.9 (>60); Magnesium 1.8 mg/dL (1.9-2.7); Potassium 3.9 mmol/L (3.5-5.0)
[2017-06-17] MEDS: Multivitamins/Minerals TAB PO SCH (07:52)
[2017-06-17] MEDS: Omeprazole CAP* 20 MG PO SCH (07:52)
[2017-06-17] MEDS: Folic Acid TAB* 1 MG PO SCH (07:52)
[2017-06-17] MEDS: Atorvastatin* 80 MG TAB PO SCH (07:52)
[2017-06-17] MEDS: Oxybutynin TAB* 5 MG PO SCH ×2 (07:52→20:54)
[2017-06-17] MEDS: buPROPion SR TAB.SR* 150 MG PO SCH (07:52)
[2017-06-17] MEDS: Calcium Carbonate TAB* 1250 MG (CALCIUM 500 MG) PO SCH ×2 (07:52→20:54)
[2017-06-17] MEDS: Ezetimibe TAB* 10 MG PO SCH (07:53)
[2017-06-17] MEDS: Thiamine TAB* 100 MG TAB PO SCH (07:54)
[2017-06-17] MEDS ORDERED: Magnesium Sulfate 2 GM IV* 2 GM/50 ML BAG IVPB ONE (08:31)
--- NOTE | 2017-06-17 14:15 | CONS ---
FOLLOWUP CONSULTATION NOTE: DATE OF CONSULT: 06/17/17 HISTORY OF PRESENT ILLNESS: I had seen Mr. Plasencia at his initial presentation on 06/12/17, because of gross hematuria and clot urinary retention. Please refer to my consultation note on that date. In brief, Mr. Plasencia lives in [place] and is in [place] visiting his ill mother-in- law. Two years ago, he was diagnosed with high-grade prostate carcinoma and underwent a radical prostatectomy. Because of what seems like locally invasive disease, he received a full course of adjuvant radiation therapy together with hormone ablation therapy. He seemed to have done well as far as his disease and his PSA, according to his , has been undetectable. In January 2016, he developed severe gross hematuria secondary to radiation cystitis. The hematuria apparently was significant enough that he required to be in hyperbaric chamber for treatment. He also developed a bladder neck contracture and he has been doing periodic intermittent self catheterization to empty his bladder. When he presented to the emergency room on 06/12/17, he was in clot urinary retention. He was then admitted. I saw him in consultation and I put a 24 three- way Schumacher catheter. After extensive irrigation where more than 1 unit of blood clots were evacuated, the patient was kept on continuous bladder irrigation and he did very well with the hematuria, well controlled on CBI. During his hospital stay, patient developed a bad case of alcohol withdrawal. He also was very anemic and required transfusions. The detail of his hospital course regarding the alcohol withdrawal and changes associated with it are detailed in the hospitalist's note. Four days after he had been maintained on the continuous irrigation, his urine cleared up. I then replaced his Schumacher catheter with an 18-[place] Coude catheter. At his initial admission, he had a noncontrast CT of the abdomen and pelvis. CT urogram was not done because his serum creatinine was elevated. The CT showed bilateral moderate hydronephrosis and hydroureters, probably secondary to the large retention. Following the drainage of his bladder, his renal function went back to normal. The plan at this time is to discharge him home with the Schumacher catheter and to hold off on the intermittent self catheterization. I will see him back in my office in another week or two and I will perform a flexible cystoscopy to rule out any bladder tumors. I expect he has radiation cystitis changes. If the gross hematuria recurs to a point where he needs another irrigation and evacuation of clots, he will be taken to the operating room for cystoscopy under anesthesia with fulguration of the bladder bleeders. The patient plans to stay in [place] for the next 4 or 5 weeks. He will follow with his urologist in [place]. [id number]/CPS #: [id number]
--- NOTE | 2017-06-17 17:25 | PN ---
Subjective Date of Service: 06/17/17 Interval History: Pt had been put back on CBI yesterday after strained with BM and had espinosa red urine. Dr Gonzalez swapped out fox for smaller size (18g) this AM and urine currently pinkish/light red. Pt needed a lot of assistance (2 person) yesterday with PT and worked with again, still very unsteady on feet. Family History: Unchanged from Admission Social History: Unchanged from Admission Past Medical History: Unchanged from Admission Objective Active Medications: Acetaminophen (Tylenol Tab*) 650 mg PO Q6H PRN PRN Reason: PAIN - MILD TO MODERATE Last Admin: 06/15/17 13:48 Dose: 650 mg Atorvastatin Calcium (Lipitor*) 80 mg PO DAILY [facility] Last Admin: 06/17/17 07:52 Dose: 80 mg Bupropion HCl (Wellbutrin Sr Tab*) 150 mg PO DAILY [facility] Last Admin: 06/17/17 07:52 Dose: 150 mg Calcium Carbonate (Calcium Carbonate Tab*) 1,250 mg PO BID [facility] Last Admin: 06/17/17 07:52 Dose: 1,250 mg Docusate Sodium (Colace Cap*) 100 mg PO BID PRN PRN Reason: CONSTIPATION Last Admin: 06/17/17 08:01 Dose: 100 mg Ezetimibe (Zetia Tab*) 10 mg PO DAILY [facility] Last Admin: 06/17/17 07:53 Dose: 10 mg Folic Acid (Folvite Tab*) 1 mg PO DAILY [facility] Last Admin: 06/17/17 07:52 Dose: 1 mg Hydralazine HCl (Apresoline Iv*) 5 mg IV SLOW PU Q6H PRN PRN Reason: SYSTOLIC BP GREATER THAN: Last Admin: 06/16/17 10:23 Dose: 5 mg Potassium Chloride/Sodium Chloride (Ns 0.9% W/ 20 Meq Kcl 1000 Ml*) 1,000 mls @ 175 mls/hr IV PER RATE [facility] Last Admin: 06/17/17 11:44 Dose: 175 mls/hr Trimethoprim/Sulfamethoxazole (480 mg/ Dextrose) 530 mls @ 265 mls/hr IVPB Q12H [facility] Last Admin: 06/17/17 03:37 Dose: 265 mls/hr Lorazepam (Ativan Inj*) 0 - 3 mg IV PUSH .PER [facility] PROTOCOL [facility] PRN Reason: Protocol Last Admin: 06/15/17 04:41 Dose: 1.5 mg Morphine Sulfate (Morphine Inj (Syringe)*) 4 mg IV Q4H PRN PRN Reason: PAIN - SEVERE Last Admin: 06/13/17 05:16 Dose: 4 mg Multivitamins/Minerals (Theragran/Minerals Tab*) 1 tab PO DAILY [facility] Last Admin: 06/17/17 07:52 Dose: 1 tab Omeprazole (Prilosec Cap*) 20 mg PO DAILY@0730 [facility] Last Admin: 06/17/17 07:52 Dose: 20 mg Oxybutynin Chloride (Ditropan Tab*) 5 mg PO BID [facility] Last Admin: 06/17/17 07:52 Dose: 5 mg Polyethylene Glycol/Electrolytes (Miralax*) 17 gm PO DAILY PRN PRN Reason: CONSTIPATION Last Admin: 06/17/17 08:01 Dose: 17 gm Thiamine HCl (Vitamin B-1 Tab*) 100 mg PO DAILY [facility] Last Admin: 06/17/17 07:54 Dose: 100 mg Vital Signs 06/16/17 06/16/17 06/16/17 19:35 20:00 21:36 Temperature 98.8 F 98.3 F Pulse Rate 81 85 Respiratory 26 18 26 Rate Blood Pressure 175/97 161/93 (mmHg) O2 Sat by Pulse 95 96 Oximetry 06/16/17 06/17/17 06/17/17 23:45 01:05 03:51 Temperature 98.2 F 98.9 F 98.3 F Pulse Rate 79 80 78 Respiratory 24 26 16 Rate Blood Pressure 147/67 164/93 170/94 (mmHg) O2 Sat by Pulse 98 97 97 Oximetry 06/17/17 06/17/17 06/17/17 06:10 07:51 08:00 Temperature 97.6 F 98.5 F Pulse Rate 72 75 Respiratory 26 24 22 Rate Blood Pressure 156/93 169/90 (mmHg) O2 Sat by Pulse 98 93 Oximetry 06/17/17 06/17/17 11:39 16:01 Temperature 98.2 F 98.3 F Pulse Rate 84 85 Respiratory 28 20 Rate Blood Pressure 128/76 160/91 (mmHg) O2 Sat by Pulse 97 97 Oximetry Oxygen Devices in Use Now: Nasal Cannula - 1 liter NC Appearance: No acute distress. No evidence of withdrawals. Eyes: No Scleral Icterus, PERRLA Ears/Nose/Mouth/Throat: NL Teeth, Lips, Gums, Mucous Membranes Moist Neck: NL Appearance and Movements; NL JVP, Trachea Midline Respiratory: Symmetrical Chest Expansion and Respiratory Effort, Clear to Auscultation Cardiovascular: NL Sounds; No Murmurs; No JVD, RRR Abdominal: NL Sounds; No Tenderness; No Distention, No Hepatosplenomegaly Skin: No Rash or Ulcers Neurological: Alert and Oriented x 3 Result Diagrams: 06/17/17 04:48 06/17/17 04:48 Additional Lab and Data: Laboratory Results - last 24 hr 06/16/17 06/16/17 09:17 09:22 WBC 8.5 RBC 3.08 L Hgb 9.6 L Hct 28 L MCV 91 MCH 31 MCHC 34 RDW 15 Plt Count 103 L MPV 9 Neut % (Auto) 82.6 Lymph % (Auto) 7.8 L [place] % (Auto) 6.6 Eos % (Auto) 2.7 Baso % (Auto) 0.3 Absolute Neuts (auto) 7.0 Absolute Lymphs (auto) 0.7 L Absolute Monos (auto) 0.6 Absolute Eos (auto) 0.2 Absolute Basos (auto) 0 Absolute Nucleated RBC 0.01 Nucleated RBC % 0.1 Sodium 136 Potassium 3.7 Chloride 110 Carbon Dioxide 19 L Anion Gap 7 BUN 11 Creatinine 0.89 Est GFR ( Amer) 109.7 Est GFR (Non-Af Amer) 85.3 BUN/Creatinine Ratio 12.4 Glucose 102 H Calcium 8.4 L Magnesium 1.5 L Microbiology and Other Data: Microbiology 06/13/17 18:01 Transfusion Reaction Culture - Preliminary Blood Bag No Growth Day 3 Transfusion Reaction Gram Stain - Final 06/12/17 09:40 Aerobic Blood Culture - Preliminary Blood Venous No Growth Day 4 Anaerobic Blood Culture - Preliminary No Growth Day 4 Blood Culture - Final 06/12/17 09:20 Aerobic Blood Culture - Preliminary Blood Venous No Growth Day 4 Anaerobic Blood Culture - Preliminary No Growth Day 4 Blood Culture - Final Assess/Plan/Problems-Billing Assessment: 66 yo male H prostate cancer s/p radical prostatectomy and radiation cystitis who p/w complete urinary obstruction from blood clots. Course c/b AMS/lethargy and alcohol withdrawal (possible levaquin, UTI and hypercarbia contributing). Mentation now back to baseline, new 18g fox with pink urine. However still very unsteady on feet and not safe for home quite yet. May need acute rehab. - Patient Problems (1) Chronic radiation cystitis Current Visit: Yes Status: Acute Code(s): N30.40 - IRRADIATION CYSTITIS WITHOUT HEMATURIA SNOMED Code(s): 070901982 Comment: Dr. Mayer replaced fox from 24 to 18g. Planned outpatient cystoscopy. treating empirically with bactrim for Pyelonephritis given left perinephric stranding and left flank pain(resolved) and 3+ wbc on UA. Will switch from IV to po. This day #4 of 10 for complicated UTI. There was no UCx drawn before abx started. (2) Acute blood loss anemia Current Visit: Yes Status: Acute Code(s): D62 - ACUTE POSTHEMORRHAGIC ANEMIA SNOMED Code(s): 077729821 Comment: Hemoglobin at 8.8-> 7.9-> 9.6->9.3 2/2 hematuria s/p transfusions 06/13 (3) Gait instability Current Visit: Yes Status: Acute Code(s): R26.81 - UNSTEADINESS ON FEET SNOMED Code(s): 55343167 Comment: f/u final PT reqs. Does not seem safe for home at this time given his size and degree of fall risk. May neen [facility] Deconditioned vs element of nutritional deficiency. Continue thiamine supplementation (4) Alcohol abuse Current Visit: Yes Status: Acute Code(s): F10.10 - ALCOHOL ABUSE, UNCOMPLICATED SNOMED Code(s): 48165147 Comment: stop WAM protocol. Investigate treament options if patient amenable. Per had increaesed alcohol use 1-2 pints vokda for last 4 weeks while on vacation/travel from home. continue thiamine, folate, MVI (5) Alcohol withdrawal delirium, acute, hyperactive Current Visit: Yes Status: Resolved Code(s): F10.231 - ALCOHOL DEPENDENCE WITH WITHDRAWAL DELIRIUM SNOMED Code(s): 0545986 Comment: resolved. stop WAM protocol/prn ativan. (6) History of prostate cancer Current Visit: Yes Status: Acute Code(s): Z85.46 - PERSONAL HISTORY OF MALIGNANT NEOPLASM OF PROSTATE SNOMED Code(s): 412640385 Comment: PSA currently undetectable Status and Disposition: Medicine inpatient. Too unstable on feet to d/c today, may need [facility] arrangement Attending: Naga Hartley
[2017-06-17] MEDS: Sulfamethox/Trimethoprim DS 800/160* TAB PO SCH (20:53)
[2017-06-18 05:38] LABS: Hematocrit 30 % (42-52); Hemoglobin 10.1 g/dl (14.0-18.0); Mean Corpuscular HGB Conc 33 g/dl (31-36); Mean Corpuscular Hemoglobin 31 pg (27-31); Mean Corpuscular Volume 92 fL (80-94); Mean Platelet Volume 9 um3 (7.4-10.4); Red Cell Distribution Width 15 % (10.5-15); White Blood Count 6.7 10^3/ul (3.5-10.8)
[2017-06-18 05:47] LABS: Add Diff/Slide Review? Slide Review Added; Comments Flag Yes
[2017-06-18 05:52] LABS: BUN/Creatinine Ratio 10.6 (8-20); Calcium 8.6 mg/dL (8.6-10.3); EGFR African American 83.2 (>60); EGFR Non-African American 64.7 (>60); Magnesium 1.8 mg/dL (1.9-2.7)
[2017-06-18] MEDS: Omeprazole CAP* 20 MG PO SCH (09:47)
[2017-06-18] MEDS: Multivitamins/Minerals TAB PO SCH (09:48)
[2017-06-18] MEDS: buPROPion SR TAB.SR* 150 MG PO SCH (09:48)
[2017-06-18] MEDS: Atorvastatin* 80 MG TAB PO SCH (09:48)
[2017-06-18] MEDS: Folic Acid TAB* 1 MG PO SCH (09:49)
[2017-06-18] MEDS: Ezetimibe TAB* 10 MG PO SCH (09:49)
[2017-06-18] MEDS: Thiamine TAB* 100 MG TAB PO SCH (09:50)
[2017-06-18] MEDS: Sulfamethox/Trimethoprim DS 800/160* TAB PO SCH (09:50)
[2017-06-18] MEDS: Oxybutynin TAB* 5 MG PO SCH (09:50)
[2017-06-18] MEDS: Calcium Carbonate TAB* 1250 MG (CALCIUM 500 MG) PO SCH (09:53)
--- NOTE | 2017-06-18 09:56 | PN ---
Subjective Date of Service: 06/18/17 Interval History: Patient seen and examined at bedside. He is OOB to chair. He wants to know when he can go home. Reports urine is clearing and denies any other complaints, incl. CP, SOB, abd pain. We discussed concern for unsteady gait and risk for fall. He verbalized understanding of this. Patient in agreement to see PT again today and understands he will not be discharged if there is concern for safety. Patient feels his previous instability was secondary to being in bed and feels like he is getting better. Family History: Unchanged from Admission Social History: Unchanged from Admission Past Medical History: Unchanged from Admission Objective Active Medications: Acetaminophen (Tylenol Tab*) 650 mg PO Q6H PRN PRN Reason: PAIN - MILD TO MODERATE Last Admin: 06/15/17 13:48 Dose: 650 mg Atorvastatin Calcium (Lipitor*) 80 mg PO DAILY [facility] Last Admin: 06/18/17 09:48 Dose: 80 mg Bupropion HCl (Wellbutrin Sr Tab*) 150 mg PO DAILY [facility] Last Admin: 06/18/17 09:48 Dose: 150 mg Calcium Carbonate (Calcium Carbonate Tab*) 1,250 mg PO BID [facility] Last Admin: 06/18/17 09:53 Dose: 1,250 mg Docusate Sodium (Colace Cap*) 100 mg PO BID PRN PRN Reason: CONSTIPATION Last Admin: 06/17/17 08:01 Dose: 100 mg Ezetimibe (Zetia Tab*) 10 mg PO DAILY [facility] Last Admin: 06/18/17 09:49 Dose: 10 mg Folic Acid (Folvite Tab*) 1 mg PO DAILY [facility] Last Admin: 06/18/17 09:49 Dose: 1 mg Hydralazine HCl (Apresoline Iv*) 5 mg IV SLOW PU Q6H PRN PRN Reason: SYSTOLIC BP GREATER THAN: Last Admin: 06/16/17 10:23 Dose: 5 mg Potassium Chloride/Sodium Chloride (Ns 0.9% W/ 20 Meq Kcl 1000 Ml*) 1,000 mls @ 175 mls/hr IV PER RATE [facility] Last Admin: 06/17/17 20:55 Dose: 175 mls/hr Magnesium Sulfate 3 gm/ Sodium (Chloride) 106 mls @ 53 mls/hr IVPB ONCE ONE Stop: 06/18/17 10:59 Last Admin: 06/18/17 09:49 Dose: 53 mls/hr Morphine Sulfate (Morphine Inj (Syringe)*) 4 mg IV Q4H PRN PRN Reason: PAIN - SEVERE Last Admin: 06/13/17 05:16 Dose: 4 mg Multivitamins/Minerals (Theragran/Minerals Tab*) 1 tab PO DAILY [facility] Last Admin: 06/18/17 09:48 Dose: 1 tab Omeprazole (Prilosec Cap*) 20 mg PO DAILY@0730 [facility] Last Admin: 06/18/17 09:47 Dose: 20 mg Oxybutynin Chloride (Ditropan Tab*) 5 mg PO BID [facility] Last Admin: 06/18/17 09:50 Dose: 5 mg Polyethylene Glycol/Electrolytes (Miralax*) 17 gm PO DAILY PRN PRN Reason: CONSTIPATION Last Admin: 06/17/17 08:01 Dose: 17 gm Thiamine HCl (Vitamin B-1 Tab*) 100 mg PO DAILY [facility] Last Admin: 06/18/17 09:50 Dose: 100 mg Trimethoprim/Sulfamethoxazole (Bactrim Ds 800/160 Tab*) 1 tab PO BID [facility] Stop: 06/24/17 20:59 Last Admin: 06/18/17 09:50 Dose: 1 tab Vital Signs 06/17/17 06/17/17 06/17/17 11:39 16:01 19:03 Temperature 98.2 F 98.3 F 98.8 F Pulse Rate 84 85 85 Respiratory 28 20 16 Rate Blood Pressure 128/76 160/91 178/95 (mmHg) O2 Sat by Pulse 97 97 98 Oximetry 06/17/17 06/17/17 06/18/17 21:15 23:29 03:46 Temperature 98.6 F 97.5 F Pulse Rate 79 74 Respiratory 16 16 20 Rate Blood Pressure 172/81 162/83 (mmHg) O2 Sat by Pulse 96 97 Oximetry Oxygen Devices in Use Now: None Appearance: Well appearing male patient, OOB to chair, NAD Eyes: No Scleral Icterus Ears/Nose/Mouth/Throat: Clear Oropharnyx, Mucous Membranes Moist Neck: NL Appearance and Movements; NL JVP Respiratory: Symmetrical Chest Expansion and Respiratory Effort, Clear to Auscultation Cardiovascular: NL Sounds; No Murmurs; No JVD, RRR Abdominal: NL Sounds; No Tenderness; No Distention Extremities: No Edema Neurological: Alert and Oriented x 3, NL Muscle Strength and Tone Lines/Tubes/Other Access: Clean, Dry and Intact Peripheral IV Nutrition: Taking PO's Result Diagrams: 06/18/17 05:29 06/18/17 05:29 Additional Lab and Data: Laboratory Results - last 24 hr 06/16/17 06/16/17 09:17 09:22 WBC 8.5 RBC 3.08 L Hgb 9.6 L Hct 28 L MCV 91 MCH 31 MCHC 34 RDW 15 Plt Count 103 L MPV 9 Neut % (Auto) 82.6 Lymph % (Auto) 7.8 L [place] % (Auto) 6.6 Eos % (Auto) 2.7 Baso % (Auto) 0.3 Absolute Neuts (auto) 7.0 Absolute Lymphs (auto) 0.7 L Absolute Monos (auto) 0.6 Absolute Eos (auto) 0.2 Absolute Basos (auto) 0 Absolute Nucleated RBC 0.01 Nucleated RBC % 0.1 Sodium 136 Potassium 3.7 Chloride 110 Carbon Dioxide 19 L Anion Gap 7 BUN 11 Creatinine 0.89 Est GFR ( Amer) 109.7 Est GFR (Non-Af Amer) 85.3 BUN/Creatinine Ratio 12.4 Glucose 102 H Calcium 8.4 L Magnesium 1.5 L Microbiology and Other Data: Microbiology 06/13/17 18:01 Transfusion Reaction Culture - Preliminary Blood Bag No Growth Day 3 Transfusion Reaction Gram Stain - Final 06/12/17 09:40 Aerobic Blood Culture - Preliminary Blood Venous No Growth Day 4 Anaerobic Blood Culture - Preliminary No Growth Day 4 Blood Culture - Final 06/12/17 09:20 Aerobic Blood Culture - Preliminary Blood Venous No Growth Day 4 Anaerobic Blood Culture - Preliminary No Growth Day 4 Blood Culture - Final Assess/Plan/Problems-Billing Assessment: 66 yo male [facility] prostate cancer s/p radical prostatectomy and radiation cystitis who p/w complete urinary obstruction from blood clots. Hospitalization complicated by AMS/lethargy and alcohol withdrawal (possible levaquin, UTI and hypercarbia contributing). Mentation now back to baseline, new 18g fox , ? unsteady gait. - Patient Problems (1) Chronic radiation cystitis Code(s): N30.40 - IRRADIATION CYSTITIS WITHOUT HEMATURIA Comment: Appreciate urology consult. Dr. Gonzalez replaced fox with 18g Fox now draining clear yellow urine Plan for outpatient cystoscopy Continue empirical tx with Bactrim for pyelonephritis, given left perinephric stranding, left flank pain (resolved) and 3+ wbc on UA. Day 02/01 for treatment of complicated UTI (no urine cx obtained prior to abx initiation) (2) Acute blood loss anemia Code(s): D62 - ACUTE POSTHEMORRHAGIC ANEMIA Comment: HH improving Likely secondary to hematuria s/p transfusion 06/13 (3) Gait instability Code(s): R26.81 - UNSTEADINESS ON FEET Comment: Issue of unstable gait expressed by nursing and physical therapy Plan to re-eval patient today, as he reports feeling stronger Discharge dispo: ? of home PT vs [facility] Deconditioned vs element of nutritional deficiency Continue thiamine supplementation (4) Alcohol abuse Code(s): F10.10 - ALCOHOL ABUSE, UNCOMPLICATED Comment: [facility] protocol discontinued Investigate treament options, if patient amenable. Per , had increased alcohol use (1-2 pints vokda for last 4 weeks) while on vacation/travel from home. Continue thiamine, folate, MVI (5) History of prostate cancer Code(s): Z85.46 - PERSONAL HISTORY OF MALIGNANT NEOPLASM OF PROSTATE Comment: PSA currently undetectable (6) DVT prophylaxis Comment: Pharmacological prophylaxis contraindicated due to cystitis and thrombocytopenia. SCDs Status and Disposition: Medicine inpatient. Re-evaluate gait, may require [facility].
[2017-06-18 10:00] VITALS: BP 158/91
--- NOTE | 2017-06-19 01:29 | DS ---
CC: Tori Chavira MD; Ke Gonzalez MD* MEDICINE DISCHARGE SUMMARY: DATE OF ADMISSION: 06/13/17 DATE OF DISCHARGE: 06/18/17 PROVIDER: Rahat Petty NP ATTENDING PHYSICIAN: Jose D Vargas MD* (as dictated by Rahat Petty NP) CONSULTING PHYSICIAN: Ke Gonzalez MD PRIMARY CARE PROVIDER: Dr. Anuradha Ruiz in [place], [place] and Tori Chavira MD in [place], [place]. PRIMARY DISCHARGE DIAGNOSES: 1. Chronic radiation cystitis with hematuria. 2. Acute blood loss anemia. 3. Acute alcohol withdrawal with delirium, now resolved. 4. Suspected pyelonephritis. 5. Gait instability. 6. Orthostatic hypotension SECONDARY DISCHARGE DIAGNOSES: 1. History of prostate cancer. 2. History of radiation cystitis. 3. Hyperlipidemia. 4. Depression. 5. Hypertension. HOME MEDICATIONS AT DISCHARGE: 1. Wellbutrin 150 mg daily. 2. Verapamil 240 mg daily. 3. Ramipril 10 mg daily. 4. Calcium 600 mg daily. 5. Atorvastatin 80 mg daily. 6. Omeprazole 20 mg daily. 7. Citalopram 10 mg daily. 8. Poth-3 fatty acids 2000 mg daily. 9. Ezetimibe 10 mg daily. 10. Trospium chloride ER 20 mg b.i.d. 11. Thiamine 100 mg daily. 12. Bactrim 1 tab b.i.d. 13. Multivitamin 1 tab daily. 14. Metoprolol succinate XL 100 mg daily. 15. Folic acid 1 mg daily. Please note that the new medications on the patient include thiamine, folic acid , multivitamin. The patient was previously on metoprolol succinate XL 200 mg daily, but describes periods of dizziness with changing positions. He has been advised to check his blood pressure before taking any blood pressure medications and follow up with his PCP. We have decreased his metoprolol succinate XL to 100 mg, which was previously at 200 mg daily. HOSPITAL COURSE OF STAY: For full details, please refer to the H and P provided by URIEL Prasad, on 06/13/17. In summary, this is a 66-year-old male patient, with a history significant for prostate cancer, status post radical prostatectomy and treatment with radiation therapy and subsequent radiation cystitis, which was previously treated hyperbaric oxygen. He reported progressively worsening hematuria since January 2016 and had concern for clots at home with self catheterization. He also reported episodes when he would get tunneled vision with standing and has concerns for dizziness with position change. The patient was evaluated in the ED and evaluated by Dr. Gonzalez, who inserted a 24-gauge Schumacher catheter and was able to irrigate out a significant amount of clots and blood until the urine was light pink color and then ordered continuous bladder irrigation. While the patient was here in the hospital receiving bladder irrigation, he had some cognitive impairment, now resolved, thought to be secondary to suspected alcohol withdrawal and subsequent delirium. The patient dose endorse history of alcohol use and it was noted that he was drinking 1 to 2 pints of vodka per day leading up to this admission. The patient was on the [place] protocol and received lorazepam until resolution of the withdrawal symptoms. In regards to the cystitis and hematuria, the patient was noted to have some perinephric stranding on imaging as well as wbc's and rbc's noted in his urine sample and was treated empirically with Bactrim secondary to concern for developing pyelonephritis. He also did receive blood transfusion for acute blood loss anemia with good response. His discharge H and H 10.1 and 30. Prior to discharge, there was concern expressed by Physical Therapy and Nursing for the patient's gait instability. This was thought to be secondary to deconditioning and question of thiamine deficiency. However, on the day of discharge, the patient was able to demonstrate steady safe ambulation with nursing and physical therapy and Physical Therapy said that the patient would be safe to go home, but recommended a rolling walker. The patient has access to rolling walker at home as his mother does have one that he can use. The patient was also given prescription for a rolling walker to merchandise pickup/receiving associate for his own use. I have advised the patient to stop drinking. He states that he is highly motivated to do so and will not be drinking any alcohol, per the patient's report. I have also advised the patient to follow up with Dr. Gonzalez as previously recommended and he states that he will be calling the office tomorrow to be seen next week. His has also heard the discharge plan and he in agreement with it. As he will be here for several weeks caring for his mother, the patient was advised to find a local PCP to help manage him in the outpatient setting. He has previously seen Dr. Tori Macadam, and we have requested our transit planner to call her office to setup an appointment for followup. The patient has been advised to continue with Bactrim for additional 5 days of treatment. His reports they have a blood pressure cuff and I have advised him to check blood pressure before each blood pressure medication administration so that he can follow up with his PCP regarding further dose adjustments, given previously expressed concern for orthostatic hypotension. Again, he has been advised not to drink any further alcohol. The patient has a rolling walker available for use and has been given a prescription for obtaining his own rolling walker. CONCERNS AT DISCHARGE: Mr. Plasencia will be discharged to home on 06/18/17. DIET: Heart healthy diet. ACTIVITY: As tolerated. The patient should begin to use rolling walker. CONDITION: Improved, stable. DISPOSITION: To home. I have recommended the patient to receive home PT and home nursing evaluation should he consent to the evaluation. Prescription has been left for case checker to follow up on this on 06/19/17. TIME SPENT: Time spent on this discharge was approximately 55 minutes. RAHAT PETTY, SHILPA [id number]/CPS #: [id number]
== END 2017-06-18 15:13 | disposition home or self-care (01) | DRG 468 ==
LOC: ED 08:40 → SSU 12:24 → OBSVTOIN 06-13 15:00 → INTOOBSV 06-14 10:46 → MEDTELE 06-14 17:51
PROVIDERS: ADMIT Internal Medicine; ATTEND Internal Medicine
PROC: 30233N1 Transfusion of Nonautologous Red Blood Cells into Peripheral Vein, Percutaneous Approach (ICD-10-PCS; principal; 2017-06-13)
PROC: 3E1K78Z Irrigation of Genitourinary Tract using Irrigating Substance, Via Natural or Artificial Opening (ICD-10-PCS; 2017-06-13)
DX: N30.41 Irradiation cystitis with hematuria (principal); D62 Acute posthemorrhagic anemia; F10.231 Alcohol dependence with withdrawal delirium; S09.90XA Unspecified injury of head, initial encounter; N12 Tubulo-interstitial nephritis, not specified as acute or chronic; N13.39 Other hydronephrosis; R26.89 Other abnormalities of gait and mobility; E78.5 Hyperlipidemia, unspecified; F32.9 Major depressive disorder, single episode, unspecified; I10 Essential (primary) hypertension; Z96.653 Presence of artificial knee joint, bilateral; N13.8 Other obstructive and reflux uropathy; Z66 Do not resuscitate; E80.6 Other disorders of bilirubin metabolism; R33.8 Other retention of urine; N32.0 Bladder-neck obstruction; N35.8 Other urethral stricture; T80.89XA Other complications following infusion, transfusion and therapeutic injection, initial encounter; X58.XXXA Exposure to other specified factors, initial encounter; Y92.230 Patient room in hospital as the place of occurrence of the external cause; W18.30XA Fall on same level, unspecified, initial encounter; Z88.1 Allergy status to other antibiotic agents; Z79.1 Long term (current) use of non-steroidal anti-inflammatories (NSAID); Z79.82 Long term (current) use of aspirin; Z85.46 Personal history of malignant neoplasm of prostate; Z79.899 Other long term (current) drug therapy
CPT/HCPCS: 36415; 70450; 74176; 76770; 80048; 80053; 80069; 80076; 81003; 81015; 82140; 82247; 82248; 83605; 83735; 84153; 85014; 85018; 85025; 85060; 85610; 85730; 86078; 86140; 86850; 86900; 86901; 86922; 87040; 93005; A9270-GY; G0103; G0378; J0360; J2060; J2270; J2405; J3360; J3475; P9040

== ENCOUNTER 2017-06-20 22:06 | Emergency (ER) | payer OTHER, MEDICARE ==
[2017-06-21 00:38] LABS: Urine Bacteria Absent (Absent)
--- NOTE | 2017-06-21 01:52 | ED ---
Maddie Zimmerman Alfonso, scribed for Yeyo Alcantar MD on 06/21/17 at 0021 . GI/ HPI - HPI Summary HPI Summary: This patient is a 66 year old presenting to [facility] accompanied by with a chief complaint of a urinary catheter issue since earlier today. He states it is clotting up. The patient rates the pain 3/10 in severity. Symptoms aggravated by nothing. Symptoms alleviated by flushing the catheter. Patient reports urinary retention and hematuria. PMHx includes prostate cancer with prostatectomy. - History of Current Complaint Chief Complaint: EDUrogenitalProblems Stated Complaint: UNABLE TO URINATE Hx Obtained From: Patient Onset/Duration: Started Hours Ago, Still Present Timing: Constant Current Severity: Moderate Pain Intensity: 3 Associated Signs and Symptoms: Positive: Other: - urinary retention and hematuria Aggravating Factor(s): Nothing - Additional Pertinent History Primary Care Physician: [id number] - Allergy/Home Medications Allergies/Adverse Reactions: Allergies Allergy/AdvReac Type Severity Reaction Status Date / Time Cephalexin Allergy Hives Verified 06/20/17 22:15 PMH/Surg Hx/FS Hx/Imm Hx Endocrine/Hematology History: Denies: Hx Anticoagulant Therapy - ASA daily, Hx Blood Disorders, Hx Diabetes Cardiovascular History: Reports: Hx Hypercholesterolemia - lipitor, zetia, fish oil, Hx Hypotension, Hx Hypertension - metoprolol, verapamil, ramipril GI History: Reports: Hx Gastroesophageal Reflux Disease - omeprazole History: Reports: Other Problems/Disorders - prostate CA w/ rad prost, rad w/ 2ndry cystitis/clots, chemo, self caths Musculoskeletal History: Reports: Hx Arthritis, Hx Bursitis Sensory History: Reports: Hx Contacts or Glasses, Hx Deafness Denies: Hx Hearing Aid Opthamlomology History: Reports: Hx Contacts or Glasses Psychiatric History: Reports: Hx Depression - wellbutrin, citalopram, Hx Substance Abuse - Etoh use excessive - Cancer History Cancer Type, Location and Year: prostate CA w/ rad prost, rad w/ 2ndry cystitis/ clots Hx Chemotherapy: No Hx Radiation Therapy: Yes - Surgical History Surgery Procedure, Year, and Place: RADICAL PROSTATECTOMY, BLADDER CAUDERIZATIONS, BILATERAL KNEE REPLACEMENTS, BILATERAL CARPAL TUNNEL, L HAND SX , BUNION, BACK SURGERY, TURBINATE REDUCTION Hx Anesthesia Reactions: No Infectious Disease History: No Infectious Disease History: Denies: Traveled Outside the [place] in Last 30 Days - Family History Known Family History: Positive: Other - Cancer Negative: Diabetes - Social History Alcohol Use: Daily Alcohol Amount: one pint vodka Substance Use Comment - Amount & Last Used: last nuight Smoking Status (MU): Never Smoked Tobacco Review of Systems Negative: Fever Positive: hematuria, other - fox urinary catheter issue, retention All Other Systems Reviewed And Are Negative: Yes Physical Exam - Summary Physical Exam Summary: General: well-appearing, no pain distress Skin: warm, color reflects adequate perfusion, dry Head: normal Eyes: EOMI, BAR ENT: normal Neck: supple, nontender Respiratory: CTA, breath sounds present Cardiovascular: RRR Abdomen: soft, nontender Bowel: present : pink tinged urine. Musculoskeletal: normal, strength/ROM intact Neurological: normal, sensory/motor intact, A&O x3 Psychological: affect/mood appropriate Triage Information Reviewed: Yes Vital Signs On Initial Exam: Initial Vitals Temp Pulse Resp BP Pulse Ox 97.0 F 70 18 107/87 98 06/20/17 22:08 06/20/17 22:08 06/20/17 22:08 06/20/17 22:08 06/20/17 22:08 Vital Signs Reviewed: Yes Diagnostics - Vital Signs Vital Signs Temp Pulse Resp BP Pulse Ox 06/20/17 22:08 97.0 F 70 18 107/87 98 - Laboratory Lab Results: Lab Results 06/21/17 Range/Units 00:08 Urine Color Red A Urine Appearance Cloudy Urine pH Not Reportable Ur Specific Ruby Not Reportable Urine Protein Not Reportable Urine Ketones Not Reportable Urine Blood Not Reportable Urine Nitrate Not Reportable Urine Bilirubin Not Reportable Urine Urobilinogen Not Reportable Ur Leukocyte Esterase Not Reportable Urine WBC (Auto) 1+(6-10/hpf) H (Absent) Urine RBC (Auto) 3+(>10/hpf) H (Absent) Urine Bacteria Absent (Absent) Urine Glucose Not Reportable Urine Ascorbic Acid Not Reportable Lab Statement: Any lab studies that have been ordered have been reviewed, and results considered in the medical decision making process. GIGU Course/Dx - Course Course Of Treatment: AFTER FLUSHING, URINE RUNNING FREELY, PAIN GONE. F/U UROLOGY. - Diagnoses Provider Diagnoses: Fox catheter problem, Hematuria Discharge - Discharge Plan Condition: Stable Disposition: HOME Patient Education Materials: Fox Catheter Placement and Care (ED), Hematuria (ED) Referrals: Ke Gonzalez MD [Primary Care Provider] - Additional Instructions: FOLLOW UP UROLOGY. CALL IN THE MORNING FOR FOLLOW UP. RETURN TO THE EMERGENCY DEPARTMENT FOR ANY WORSENING OF YOUR CONDITION OR QUESTIONS OR CONCERNS. The documentation as recorded by the Maddie clounga Alfonso accurately reflects the service I personally performed and the decisions made by me, Yeyo Alcantar MD.
[2017-06-21 03:02] VITALS: BP 150/76
== END 2017-06-21 02:26 | disposition home or self-care (01) ==
LOC: ED 22:06
DX: T83.9XXA Unspecified complication of genitourinary prosthetic device, implant and graft, initial encounter (principal); R33.9 Retention of urine, unspecified; R31.9 Hematuria, unspecified
CPT/HCPCS: 81003; 99283

== ENCOUNTER 2017-06-22 12:44 | Day surgery (SDC) | payer OTHER, MEDICARE ==
[2017-06-22] MEDS ORDERED: Buffered Lidocaine 0.9% SYRIN* 5 ML/SYR SYRINGE ONE (13:16)
[2017-06-22] MEDS ORDERED: Levofloxacin 750 MG IVPREMIX(* 750 MG/150 ML BAG ONE (13:17)
[2017-06-22] MEDS ORDERED: Propofol* 10 MG/ML 20 ML BTL IV PUSH ONE (15:00)
[2017-06-22] MEDS ORDERED: Midazolam* 1 MG/ML 5 ML VIAL (5 MG) ONE (15:00)
[2017-06-22] MEDS ORDERED: fentaNYL* 50 MCG/ML 2 ML VIAL (100 MCG VIAL) ONE ×3 (15:00→17:20)
[2017-06-22] MEDS ORDERED: Ondansetron INJ* 2 MG/ML VIAL IV PRN (16:02)
[2017-06-22] MEDS ORDERED: oxyCODONE TAB* 5 MG TAB PO PRN (16:02)
[2017-06-22] MEDS ORDERED: DiMENhydriNATE IV* 50 MG/ML VIAL IV PUSH PRN (16:02)
[2017-06-22] MEDS ORDERED: HYDROcodone/ACETAMIN 5-325 MG* 1 TAB PO PRN (16:02)
[2017-06-22] MEDS ORDERED: Dexamethasone IV* 4 MG/ML 1 ML (4 MG) ONE (16:03)
[2017-06-22] MEDS: fentaNYL* 50 MCG/ML 2 ML VIAL (100 MCG VIAL) IV PRN ×5 (16:38→17:21)
[2017-06-22] MEDS ORDERED: oxyCODONE TAB* 5 MG TAB ONE (16:49)
[2017-06-22] MEDS ORDERED: Ondansetron INJ* 2 MG/ML VIAL ONE (16:59)
[2017-06-22 18:46] VITALS: BP 163/88
--- NOTE | 2017-06-23 11:43 | OP ---
OPERATIVE REPORT: DATE OF OPERATION: 06/22/17 - [facility] DATE OF : 48 SURGEON: Ke Gonzalez MD ANESTHESIOLOGIST: Easton Dudley MD ANESTHESIA: General. PRE-OP DIAGNOSES: 1. Gross hematuria and clot urinary retention. 2. Radiation cystitis. POST-OP DIAGNOSES: 1. Gross hematuria and clot urinary retention. 2. Radiation cystitis. 3. Pending pathology. OPERATIVE PROCEDURE: 1. Cystoscopy. 2. Multiple bladder biopsies. 3. Extensive fulguration of bladder lesions and bleeders. INDICATION FOR PROCEDURE: Mr. Plasencia is a 66-year-old white male who had undergone a radical prostatectomy for [place] 9 adenocarcinoma of the prostate in [place] 2 years ago. This was followed by radiation therapy. He developed radiation cystitis and required fulgurations and had to be in a hyperbaric chamber. The patient is in [place] for a few weeks. He was admitted to [facility] because of gross hematuria and urinary retention and placed on continuous bladder irrigation. He improved and was discharged home with Schumacher catheter. He presented to my office today with recurrence of the gross hematuria and clot urinary retention. He had cystoscopy in the office, which showed changes of radiation cystitis and there were multiple clots noted inside the bladder. The patient is taken to the operating room on an urgent basis to control the hematuria. PATHOLOGY: At cystoscopy, the penile and bulbar urethra looked normal. 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 There was partial bladder neck contraction and fibrosis. Examination of the bladder showed multiple bladder clots. After evacuation of the clots, inspection of the bladder showed multiple patchy bladder wall hyperemia with telangiectasias, some of them actively bleeding with changes consistent with radiation cystitis. No papillary bladder lesions were seen. The ureteral orifices looked normal. There were no diverticulae or calculi. DESCRIPTION OF PROCEDURE: After successful general anesthesia, the patient was placed in the lithotomy position and was prepped and draped for cystoscopy. Cystoscopy was performed. The clots were evacuated, the bladder wall was carefully inspected and the above findings were noted. Bladder biopsies were obtained from characteristic bladder lesions and sent for pathology. The cystoscope was then removed and the resectoscope was then introduced inside the bladder. A roller electrode was then used. Extensive fulguration was then carried of the sites of the biopsies, the sites of active bleeding as well as the more prominent telangiectasias that were prone for recurrence of the hematuria. Care was taken not to coagulate in the area of the orifices. At the completion of the procedure, there was no active bleeding noted. All of the prominent hyperemic lesions were fulgurated. There was no evidence of any bladder wall injury. The resectoscope was removed and a size 22-Kyr[place]z Schumacher catheter was passed inside the bladder and the balloon inflated with15 cc of water. Irrigation yielded clear returns. Patient tolerated the procedure well and left the operating room in good condition. [id number]/[facility] #: [id number] MTDD
== END 2017-06-22 18:20 | disposition home or self-care (01) ==
LOC: OR 12:44
PROVIDERS: ATTEND Urology
DX: R31.0 Gross hematuria (principal); N32.89 Other specified disorders of bladder; R33.8 Other retention of urine; I10 Essential (primary) hypertension; G47.33 Obstructive sleep apnea (adult) (pediatric); N30.41 Irradiation cystitis with hematuria; C61 Malignant neoplasm of prostate; F10.231 Alcohol dependence with withdrawal delirium
CPT/HCPCS: 88305; A9270-GY; J1100; J2250; J2405; J2704; J3010